=== PATIENT | male | born 1945 | race Caucasian/White ===

== ENCOUNTER 2018-06-23 21:49 | Inpatient (IN) | payer OTHER, MEDICARE, SELFPAY ==
--- NOTE | 2018-06-23 22:19 | NURSING ---
Pt in bed and stable. VS WNL. Call light within reach, fresh ice water provided and pt fatigued.
[2018-06-23 22:20] VITALS: BMI 31.1
[2018-06-23 23:07] VITALS: BP 145/78; PULSE 72; RESP 18; TEMP 36.8; O2SAT 94
[2018-06-23 23:12] VITALS: BMI 31.2
[2018-06-23 23:55] VITALS: BP 142/76; PULSE 72; RESP 17; TEMP 36.8; O2SAT 94
[2018-06-24] MEDS: Enoxaparin 40 MG/0.4 ML Syringe SC (05:36)
[2018-06-24 06:25] VITALS: O2SAT 96
[2018-06-24 06:32] LABS: Hemoglobin 13.4 g/dl (13.0-16.5); Mean Corp Hgb Conc 33.5 g/gl (32-36); Mean Corpuscular Hgb 31.2 pg (27.0-32.0); Mean Corpuscular Volume 93.2 fL (80-94); Mean Platelet Vol. 9.9 fl (6.2-12.0); Platelet Count 164 K/mm3 (150-450); RBC Distribution Width CV 12.6 % (11.6-14.6); Red Blood Count 4.29 M/mm3 (4.6-6.2); White Blood Count 7.4 K/mm3 (4.4-11.0)
[2018-06-24 06:37] LABS: International Normalized Ratio 1.1; Prothrombin Time (Protime)PT. 14.1 SECONDS (11.7-14.9); Scan Indicated on CBC? Y/N NO
[2018-06-24 06:45] LABS: Anion Gap 8 (5-15); BUN 16 mg/dL (7-18); BUN/Creat Ratio 17.3 RATIO (10-20); Calcium,Total 8.7 mg/dL (8.5-10.1); Chloride 107 mmol/L (98-107); Creatinine, Serum 0.93 mg/dL (0.70-1.30); EST Glomerular Filtration Rate 85 mL/min (>60); Est Glom Filt Rate - Afr Amer 102 mL/min (>60); Estimated Creatinine Clearance 65.15 ml/min; Glucose 99 mg/dL (74-106); Potassium 3.5 mmol/L (3.5-5.1); Sodium Level 144 mmol/L (136-145)
[2018-06-24 07:56] VITALS: PULSE 78
[2018-06-24] MEDS: Metoprolol(XL)Succ 50 MG Tablet PO ×2 (07:56→20:10)
[2018-06-24] MEDS: Lisinopril 20 MG Tablet PO (07:56)
[2018-06-24] MEDS: dilTIAZem CD 180 MG Capsule PO (07:57)
[2018-06-24] MEDS: Senna/Docusate Sodium 1 Tablet 2 TABLET PO ×2 (07:57→20:11)
[2018-06-24] MEDS: Aspirin E.C. 81 MG Tablet PO (07:57)
[2018-06-24 08:07] VITALS: BP 132/79; PULSE 78; RESP 17; TEMP 36.7; O2SAT 97
--- NOTE | 2018-06-24 16:02 | PCM.HP.COS ---
History of Present Illness Date of Admission: 06/23/18 Chief Complaint: cva The patient is a 72 year old right handed male. who was admitted to the rehab unit for rehabilitation after he suffered a left intraparenchymal hematoma of the left middle cerebellar peduncle as well as intraventricular hemorrhage secondary to Eliquis that he has been on for paroxysmal atrial fibrillation. He has a pass medical history significant for paroxysmal A-Fib, he had an ablation in the past, and was recently started on Eliquis 2 months ago, he is on Cardizem and Metoprolol for rate control, CAD s/p PTCI, HTN, HLD, and obesity, his BMI is 31.2. He was admitted to [facility] ([facility]) from [place] [facility] a few days ago with sudden onset dizziness with N/V, ataxic gait resulting in a fall with no loss of consciousness, and a headache. CTH at [place]'s ED showed a 2.4 cm left-sided cerebellar hemorrhage extending into the third and fourth ventricle. He was then life flighted to [facility], and admitted to the NSICU, his NIH on admission was 0. Once at [facility] his hemorrhage was managed conservatively without any interventions. He continues to have some mild weakness of the left upper extremity. He lives with his in a1 story home with no steps to get into the home. He was previously completely functionally independent and is admitted to the rehab unit in order to restore his previous level of functional independence. He was on Eliquis previously at home. Past Medical History Past Medical History (Chronic Problems): Chronic Problems Hyperlipidemia (Chronic) Hypertension (Chronic) Status post percutaneous transluminal coronary angioplasty (Chronic) Coronary artery disease (Chronic) Paroxysmal atrial fibrillation (Chronic) Allergies ibuprofen Allergy (Verified 06/23/18 22:27) Anaphylaxis Surgical History: cataract - right eye, tonsillectomy, - - Right shoulder surgery, Neck surgery for fractures, Pilonidal cyst, and carpal tunnel surgery right hand Lives: Spouse/ Significant Other Smoking Status: Former smoker Alcohol: Occasional Drugs: None - *Family History Maternal History Items: No pertinent history Paternal History Items: No pertinent history Review of Systems Constitutional: Denies: Chills, Fever, Weight Change HEENT: Denies: Head Aches, Sinus Congestion, Sinus Drainage Cardiovascular: Denies: Chest Pain, Palpitations Respiratory: Denies: Cough, Shortness of breath at rest, Sputum production Gastrointestinal: Denies: Abdominal Pain, Nausea, Vomiting Genitourinary: Denies: Dysuria Musculoskeletal: Denies: Joint Pain, Joint Tenderness Skin: Denies: Rash, Wounds Neurological: Denies: Numbness, Tingling, Focal weakness Psychiatric: Denies: Anxiety, Depression, Homicidal Ideations, Suicidal Ideations Hematologic/ Lymphatic: Denies: Easy Bruising, Easy Bleeding VTE Information - Inpt Only VTE Present on Admission: No VTE Mechan Device Prophylaxis: SCD's, Knee High IGOR Hose VTE Pharm Prophylaxis ordered?: Yes Patient Problems: Active and Suspected Problems Intraventricular hemorrhage (Acute) 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 (Acute) - Physical Exam General: Alert, Oriented x3, Cooperative HEENT: Atraumatic, PERRLA, EOMI, Normocephalic Neck: Supple, No JVD, Negative Carotid Bruits Lungs: Clear to auscultation, Normal air movement Cardiovascular: Regular rate, No murmurs Abdomen: Bowel Sounds Present, Soft, Non Tender Extremities: No edema, Capillary Refill Less than 3 Seconds Skin: No rashes, No breakdown Musculoskeletal: No Tenderness to Palpation of Joints or Extremities Neurological: Cranial nerves II-XII grossly intact Psych/Mental Status: Normal Affect, Appropriate Vital Signs Temp Pulse Resp BP Pulse Ox 98.0 F 78 17 132/79 H 97 06/24/18 08:07 06/24/18 08:07 06/24/18 08:07 06/24/18 08:07 06/24/18 08:07 Oxygen Delivery Method Room Air Weight: 90.265 kg Body Mass Index (BMI) 31.1 Intake and Output for Last 24 Hours 06/22/18 06/23/18 06/24/18 23:59 23:59 23:59 Intake Total 640 / 640 Balance 640 / 640 Laboratory Tests Past 24 Hrs 06/24/18 06/24/18 06/24/18 06:20 06:20 06:20 WBC 7.4 RBC 4.29 L Hgb 13.4 Hct 40.0 MCV 93.2 MCH 31.2 MCHC 33.5 RDW 12.6 RDW Differential 42.0 Plt Count 164 MPV 9.9 PT 14.1 INR 1.1 Sodium 144 Potassium 3.5 Chloride 107 Carbon Dioxide 29.0 Anion Gap 8 BUN 16 Creatinine 0.93 Estim Creat Clear Calc 65.15 Est GFR (MDRD) Af Amer 102 Est GFR (MDRD) Non-Af 85 BUN/Creatinine Ratio 17.3 Glucose 99 Calcium 8.7 Assessment/Plan All Active Problems Intraventricular hemorrhage (Acute) 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 Goal of rehab is holiness of functional independence. Plan: - Physical therapy for gait and balance - Occupational Therapy for ADLs - Speech therapy - As needed analgesics - Bowel protocol - Stroke prevention on ASA, Statin - DVT prophylaxis: SCDs, ASA, Lovenox - Hypertension: Blood pressure stable, continue lisinopril and metoprolol. Keep BP < 130/80 mmHg - hyperlipidemia: Continue statins. - CAD s/p PTCI: Continue aspirin, Lipitor, lisinopril and metoprolol. - Paroxysmal A. fib: Rate is controlled, in sinus rhythm. Continue Cardizem and metoprolol for rate control, on aspirin. Not on anticoagulation at this time hold until cleared by Neurosurgeon - Acute left intraparenchymal hematoma of the left middle cerebellar peduncle/interventricular hemorrhage: has minimal left upper extremity weakness, mostly in the hand, will do a follow-up CT scan brain in couple of days. -Fall precautions
--- NOTE | 2018-06-24 16:43 | PCM.CONS.GEN ---
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 History of Present Illness: The patient is a 72 year old M with past medical history as mentioned above admitted to rehabilitation unit yesterday after he suffered a left intraparenchymal hematoma of the left middle cerebellar peduncle as well as intraventricular hemorrhage secondary to Eliquis that he has been on for paroxysmal atrial fibrillation. At this time, he reported intermittent dizziness and he said that this has been going on for some time and he has been getting up slowly to avoid. He denies syncope or presyncope. Patient denied any significant symptoms except difficulty grabbing items by his left hand. He denied headache, vision change or slurred speech. He denied chest pain or shortness of breath. He had a history of CAD status post PTCI and he has been on aspirin, statins, lisinopril and metoprolol has been stable. He had a history of paroxysmal atrial fibrillation, status post ablation in the past, recently started on Eliquis for anticoagulation around 2 months ago and he has been having gum bleeding since he was started on Eliquis. He has been on Cardizem and metoprolol for rate control. He has a history of hypertension and has been under control with Cardizem, lisinopril and metoprolol. He was admitted to [facility] few days ago after he had dizziness and syncopal episode, found to have left intraparenchymal hematoma of the left middle cerebellar peduncle as well as intraventricular hemorrhage and this was managed conservatively without any interventions. The only deficit that he has is minimal weakness of the left upper extremity. At this time, his vital signs are stable. His routine blood work was unremarkable. Pro time and INR were normal. Past Medical History Past Medical History (Chronic Problems): Chronic Problems Hyperlipidemia (Chronic) Hypertension (Chronic) Status post percutaneous transluminal coronary angioplasty (Chronic) Coronary artery disease (Chronic) Type 2 diabetes mellitus (Chronic) Paroxysmal atrial fibrillation (Chronic) Allergies ibuprofen Allergy (Verified 06/23/18 22:27) Anaphylaxis Surgical History: - - Back surgery, neck surgery, vasectomy, PTCI. Psychiatric History: No pertinent psych hx Lives: Spouse/ Significant Other Smoking Status: Former smoker Alcohol: Occasional Drugs: None - *Family History Maternal History Items: No pertinent history Paternal History Items: No pertinent history Review of Systems Constitutional: Denies: Anorexia, Chills, Fever, Weakness, Fatigue Eyes: Denies: Blurred vision, Double vision, Drainage, Redness HEENT: Denies: Difficulty Hearing, Ear Pain, Eye Pain, Nasal Congestion, Sore Throat Cardiovascular: Denies: Chest Pain, Chest Pressure, Chest Tightness, Heaviness, Palpitations, Syncope Respiratory: Denies: Cough, Pleuritic Pain, Shortness of Breath, Sputum production, Wheezing Gastrointestinal: Denies: Abdominal Pain, Constipation, Diarrhea, Nausea, Vomiting Genitourinary: Denies: Dysuria, Frequency, Hematuria Musculoskeletal: Denies: Arm Pain, Back Pain, Foot Pain Skin: Denies: Dryness, Rash Neurological: Denies: Balance problems, Blurred vision, Double vision, Confusion, Headaches, Incoordination, Numbness Psychiatric: Denies: Anxiety, Depression Endocrine: Denies: Change in Body Habitus, Polydipsia Patient Problems: Active and Suspected Problems Intraventricular hemorrhage (Acute) 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 (Acute) - Physical Exam General: Alert, Oriented x3, Cooperative, No apparent distress HEENT: Atraumatic, PERRLA, EOMI, Normocephalic Oral: Moist Mucosa, No Gingival or Mucosal Lesions/ Ulcerations Neck: Supple, No JVD, Negative Carotid Bruits, Trachea Midline, Thyroid Normal Size and Texture Lungs: Clear to auscultation, Normal air movement, No rhonchi, No wheeze, No rales Cardiovascular: Regular rate, Regular Rhythm, Normal S1, Normal S2, PMI Normal Abdomen: Bowel Sounds Present, Soft, Non Tender, Non-Distended, No Hepato-splenomegaly Extremities: No clubbing, No cyanosis, No edema Skin: No rashes, No breakdown Lymphatic: No Cervical, Supraclavicular, or Inguinal Adenopathy Neurological: Cranial nerves II-XII grossly intact - Minimal left upper extremity weakness, power is almost 5 x 5, 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 Psych/Mental Status: Normal Affect, Appropriate, Alert and oriented to time, place, person, mood and affect Vital Signs Temp Pulse Resp BP Pulse Ox 98.0 F 78 17 132/79 H 97 06/24/18 08:07 06/24/18 08:07 06/24/18 08:07 06/24/18 08:07 06/24/18 08:07 Oxygen Delivery Method Room Air Weight: 199 lb 0.004 oz Body Mass Index (BMI) 31.1 Intake and Output for Last 24 Hours 06/22/18 06/23/18 06/24/18 23:59 23:59 23:59 Intake Total 640 / 640 Balance 640 / 640 Laboratory Tests Past 24 Hrs 06/24/18 06/24/18 06/24/18 06:20 06:20 06:20 WBC 7.4 RBC 4.29 L Hgb 13.4 Hct 40.0 MCV 93.2 MCH 31.2 MCHC 33.5 RDW 12.6 RDW Differential 42.0 Plt Count 164 MPV 9.9 PT 14.1 INR 1.1 Sodium 144 Potassium 3.5 Chloride 107 Carbon Dioxide 29.0 Anion Gap 8 BUN 16 Creatinine 0.93 Estim Creat Clear Calc 65.15 Est GFR (MDRD) Af Amer 102 Est GFR (MDRD) Non-Af 85 BUN/Creatinine Ratio 17.3 Glucose 99 Calcium 8.7 Assessment/Plan All Active Problems Intraventricular hemorrhage (Acute) 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 It is secondary to coagulopathy due to Eliquis. Pro time and INR are normal. Hemoglobin and hematocrit are stable. Vital signs are stable. Routine blood blood work is unremarkable. Plan to continue aspirin, PT OT evaluation and treatment, patient will probably need follow-up CT scan brain in couple of days. #2 paroxysmal A. fib: Rate is controlled, in sinus rhythm at this time. Plan to continue Cardizem and metoprolol for rate control, on aspirin. He is not on anticoagulation and he should not be at this time. #3 CAD status post PTCI: Denies any symptoms, no chest pain or shortness of breath. Continue aspirin, Lipitor, lisinopril and metoprolol. #4 hypertension: Blood pressure stable, continue lisinopril and metoprolol. #5 hyperlipidemia: Continue statins. #6 DVT prophylaxis: Subcu Lovenox. This note was generated with [employer] dictation software. It may contain incorrect words, spelling, and punctuation that were not noted in checking the note before signing. Code Visit Inpatient E&M: 08065 Init Hosp L2
--- NOTE | 2018-06-24 16:48 | CON.PCM_ITS ---
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 History of Present Illness: The patient is a 72 year old M with past medical history as mentioned above admitted to rehabilitation unit yesterday after he suffered a left intraparenchymal hematoma of the left middle cerebellar peduncle as well as intraventricular hemorrhage secondary to Eliquis that he has been on for paroxysmal atrial fibrillation. At this time, he reported intermittent dizziness and he said that this has been going on for some time and he has been getting up slowly to avoid. He denies syncope or presyncope. Patient denied any significant symptoms except difficulty grabbing items by his left hand. He denied headache, vision change or slurred speech. He denied chest pain or shortness of breath. He had a history of CAD status post PTCI and he has been on aspirin, statins, lisinopril and metoprolol has been stable. He had a history of paroxysmal atrial fibrillation, status post ablation in the past, recently started on Eliquis for anticoagulation around 2 months ago and he has been having gum bleeding since he was started on Eliquis. He has been on Cardizem and metoprolol for rate control. He has a history of hypertension and has been under control with Cardizem, lisinopril and metoprolol. He was admitted to [facility] few days ago after he had dizziness and syncopal episode, found to have left intraparenchymal hematoma of the left middle cerebellar peduncle as well as intraventricular hemorrhage and this was managed conservatively without any interventions. The only deficit that he has is minimal weakness of the left upper extremity. At this time, his vital signs are stable. His routine blood work was unremarkable. Pro time and INR were normal. Past Medical History Past Medical History (Chronic Problems): Chronic Problems Hyperlipidemia (Chronic) Hypertension (Chronic) Status post percutaneous transluminal coronary angioplasty (Chronic) Coronary artery disease (Chronic) Type 2 diabetes mellitus (Chronic) Paroxysmal atrial fibrillation (Chronic) Allergies ibuprofen Allergy (Verified 06/23/18 22:27) Anaphylaxis Surgical History: - - Back surgery, neck surgery, vasectomy, PTCI. Psychiatric History: No pertinent psych hx Lives: Spouse/ Significant Other Smoking Status: Former smoker Alcohol: Occasional Drugs: None - *Family History Maternal History Items: No pertinent history Paternal History Items: No pertinent history Review of Systems Constitutional: Denies: Anorexia, Chills, Fever, Weakness, Fatigue Eyes: Denies: Blurred vision, Double vision, Drainage, Redness HEENT: Denies: Difficulty Hearing, Ear Pain, Eye Pain, Nasal Congestion, Sore Throat Cardiovascular: Denies: Chest Pain, Chest Pressure, Chest Tightness, Heaviness, Palpitations, Syncope Respiratory: Denies: Cough, Pleuritic Pain, Shortness of Breath, Sputum production, Wheezing Gastrointestinal: Denies: Abdominal Pain, Constipation, Diarrhea, Nausea, Vomiting Genitourinary: Denies: Dysuria, Frequency, Hematuria Musculoskeletal: Denies: Arm Pain, Back Pain, Foot Pain Skin: Denies: Dryness, Rash Neurological: Denies: Balance problems, Blurred vision, Double vision, Confusion , Headaches, Incoordination, Numbness Psychiatric: Denies: Anxiety, Depression Endocrine: Denies: Change in Body Habitus, Polydipsia Patient Problems: Active and Suspected Problems Intraventricular hemorrhage (Acute) 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 (Acute) - Physical Exam General: Alert, Oriented x3, Cooperative, No apparent distress HEENT: Atraumatic, PERRLA, EOMI, Normocephalic Oral: Moist Mucosa, No Gingival or Mucosal Lesions/ Ulcerations Neck: Supple, No JVD, Negative Carotid Bruits, Trachea Midline, Thyroid Normal Size and Texture Lungs: Clear to auscultation, Normal air movement, No rhonchi, No wheeze, No rales Cardiovascular: Regular rate, Regular Rhythm, Normal S1, Normal S2, PMI Normal Abdomen: Bowel Sounds Present, Soft, Non Tender, Non-Distended, No Hepato- splenomegaly Extremities: No clubbing, No cyanosis, No edema Skin: No rashes, No breakdown Lymphatic: No Cervical, Supraclavicular, or Inguinal Adenopathy Neurological: Cranial nerves II-XII grossly intact - Minimal left upper extremity weakness, power is almost 5 x 5, 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 Psych/Mental Status: Normal Affect, Appropriate, Alert and oriented to time, place, person, mood and affect Vital Signs Temp Pulse Resp BP Pulse Ox 98.0 F 78 17 132/79 H 97 06/24/18 08:07 06/24/18 08:07 06/24/18 08:07 06/24/18 08:07 06/24/18 08:07 Oxygen Delivery Method Room Air Weight: 199 lb 0.004 oz Body Mass Index (BMI) 31.1 Intake and Output for Last 24 Hours 06/22/18 06/23/18 06/24/18 23:59 23:59 23:59 Intake Total 640 / 640 Balance 640 / 640 Laboratory Tests Past 24 Hrs 06/24/18 06/24/18 06/24/18 06:20 06:20 06:20 WBC 7.4 RBC 4.29 L Hgb 13.4 Hct 40.0 MCV 93.2 MCH 31.2 MCHC 33.5 RDW 12.6 RDW Differential 42.0 Plt Count 164 MPV 9.9 PT 14.1 INR 1.1 Sodium 144 Potassium 3.5 Chloride 107 Carbon Dioxide 29.0 Anion Gap 8 BUN 16 Creatinine 0.93 Estim Creat Clear Calc 65.15 Est GFR (MDRD) Af Amer 102 Est GFR (MDRD) Non-Af 85 BUN/Creatinine Ratio 17.3 Glucose 99 Calcium 8.7 Assessment/Plan All Active Problems Intraventricular hemorrhage (Acute) 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 It is secondary to coagulopathy due to Eliquis. Pro time and INR are normal. Hemoglobin and hematocrit are stable. Vital signs are stable. Routine blood blood work is unremarkable. Plan to continue aspirin, PT OT evaluation and treatment, patient will probably need follow-up CT scan brain in couple of days. #2 paroxysmal A. fib: Rate is controlled, in sinus rhythm at this time. Plan to continue Cardizem and metoprolol for rate control, on aspirin. He is not on anticoagulation and he should not be at this time. #3 CAD status post PTCI: Denies any symptoms, no chest pain or shortness of breath. Continue aspirin, Lipitor, lisinopril and metoprolol. #4 hypertension: Blood pressure stable, continue lisinopril and metoprolol. #5 hyperlipidemia: Continue statins. #6 DVT prophylaxis: Subcu Lovenox. This note was generated with [employer] dictation software. It may contain incorrect words, spelling, and punctuation that were not noted in checking the note before signing. Code Visit Inpatient E&M: 63684 Init Hosp L2
[2018-06-24 19:00] VITALS: BP 144/79; PULSE 71; RESP 18; TEMP 37.1; O2SAT 95
[2018-06-24 20:10] VITALS: PULSE 71
[2018-06-24] MEDS: Atorvastatin Calcium 10 MG Tablet PO (20:11)
[2018-06-25] MEDS: Enoxaparin 40 MG/0.4 ML Syringe SC (05:12)
[2018-06-25 06:58] VITALS: PULSE 69
[2018-06-25] MEDS: dilTIAZem CD 180 MG Capsule PO (06:58)
[2018-06-25] MEDS: Metoprolol(XL)Succ 50 MG Tablet PO ×2 (06:58→20:46)
[2018-06-25] MEDS: Lisinopril 20 MG Tablet PO (06:58)
--- NOTE | 2018-06-25 07:03 | NURSING ---
reviewed and agree with charting of student nurseCarol
[2018-06-25] MEDS: Aspirin E.C. 81 MG Tablet PO (07:58)
[2018-06-25] MEDS: Senna/Docusate Sodium 1 Tablet 2 TABLET PO ×2 (07:58→20:45)
--- NOTE | 2018-06-25 09:46 | REHABEVAL_ITS ---
Admission Information Status Changes from Prescreening?: No changes Identified Actual Problem List:: Falls, Mobility Impaired, Self Care Deficit, BP, Hypertension Potential Problem List:: DVT, Bleeding, Infection, UTI, Aspiration, Falls, Skin Integrity, Depression Risk of Complications DVT: LMWH, IGOR Hose, Sequential Compression Device Bleeding: Monitor Lab Values, Nursing to Teach Precautions for anti-coagulation therapy., Wound, if applicable, to be assessed every shift., Stroke patients assessed for lethargy or change in status. Infection: Clinical Staff to Monitor for S/S of infection:, S/S of infection include fever, redness, warmth, etc. Urinary Tract Infection: Monitor for frequency, burning, discomfort, or incontinence., Nursing will obtain urine sample for urinalysis and C&S when ordered. Aspiration: Clinical staff will monitor for coughing, drooling, congestion., Speech will evaluate swallowing and dsyphasia., Nursing will monitor patient swallowing during meals. Falls: Patient will be evaluated for Fall Precautions, Patient will be placed on Fall Precautions as indicated per protocol. Skin Breakdown: Nursing will assess skin daily using assessment tool., Nursing will place on Skin Breakdown Precautions as indicated. Pain: Clinical staff will assess patient's pain level per protocol., Medications will be given, if needed, and the pain level reassessed., Other methods: Massage, distraction, decrease stimulus, etc. used PRN. Plan of Care Patient requires physician specializing in physical medicine and rehab oversight to provide close medical supervision of rehab issues including: Pain Management, Sleep Problems, Bowel and Bladder, Medical and co-morbidity Management, DVT prophylaxis, Rehabilitation Leadership, Coordination of treatment team Patient needs Physical Therapy: For a minimum of 1 hour, At least 5 out of 7 days Patient needs Physical Therapy to improve:: Mobility, Mobility, Mobility, Strengthening, Transfers, Stretching, ROM, Endurance, Stairs, Gait, Balance Patient needs Occupational Therapy: For a minimum of 1 hour, At least 5 out of 7 days Patient needs Occupational Therapy to improve ADL's incl.: Eating, Grooming, Bathing, Dressing, Toileting, Toilet transfers, Community Reintegration, Higher functioning activities, Household tasks, Adaptive Equipment, Splinting, Other activities as determined Patient requires speech therapy: For a minimum of 1 hour, At least 5 out of 7 days Patient requires speech therapy for: Swallowing, Cognition, Language Skills, Compensatory Strategies Patient requires 15/06 Rehabilitation Nursing for: Pain Issues, Identifying and preventing risk factors, Monitoring and reporting current medical conditions, Assisting with ambulation, transfer, and all ADL's, Teaching patients about disease process and medications, Family teaching, Providing safe environment, Bowel and Bladder Issues, Skin integrity, Medication Management Patient needs Geophysical Prospector/ Case Management for: Discharge Planning, Arranging Home Equipment or Services, Family Interventions Patient needs Dietary and Nutrition Services for: Adequate Nutrition, Nutritional Supplements, Nutritional Education Goals Patient will remain: free from falls, or injury at time of discharge. Patient will perform bed mobility at: MOD I level of assist. Patient will complete transfers from bed to chair at: MOD I level of assist. Patient will ambulate: 100 feet, with MOD I assist, with LRD Patient will complete upper body dressing at: MOD I level of assist. Patient will complete lower body dressing at: MOD I level of assist. Patient will complete toileting at: MOD I level of assist. Patient will perform bathing at: MOD I level of assist. Patient will complete grooming at: MOD I level of assist. Patient will complete home management skills at: MOD I level of assist. Patient will achieve: 12 stairs, at MOD I assist Patient will have pain level of: of 3 or less Patient's skin will: remain intact, free from infection. Patient will receive: adequate nutrition. Discharge Planning Pt Prognosis for Sig. Practical Improv. w/in Reasonable Time: Good Estimated Length of stay (days): 16 Anticipated D/C Destination: Home Was Preadmission Assessment Accurate?: Yes
[2018-06-25 10:00] VITALS: BP 151/81; PULSE 78; RESP 18; TEMP 36.6; O2SAT 96
--- NOTE | 2018-06-25 10:12 | CASEMGMT ---
Insurance Call from Olivia at [facility] and update is due 06/30. Please include team notes. Auth # [id number] THEO Bermudez
[2018-06-25 14:32] VITALS: O2SAT 95
[2018-06-25 19:06] VITALS: BP 149/95; PULSE 72; RESP 20; TEMP 36.8; O2SAT 95
[2018-06-25] MEDS: Atorvastatin Calcium 10 MG Tablet PO (20:45)
[2018-06-25 20:46] VITALS: BP 149/95; PULSE 72
[2018-06-25 20:48] VITALS: PULSE 72; RESP 15; O2SAT 95
[2018-06-26] MEDS: Enoxaparin 40 MG/0.4 ML Syringe SC (05:44)
[2018-06-26] MEDS: dilTIAZem CD 180 MG Capsule PO (06:40)
[2018-06-26 06:41] VITALS: BP 165/100; PULSE 73
[2018-06-26] MEDS: Metoprolol(XL)Succ 50 MG Tablet PO ×2 (06:41→22:23)
[2018-06-26] MEDS: Lisinopril 20 MG Tablet PO ×2 (06:41→19:26)
--- NOTE | 2018-06-26 06:43 | NURSING ---
Addendum entered by Sarahi Scott 06/26/18 06:49: pt denies any sx at this time. Original Note: it security architect taking am vs and bp is noted to be 165/100 and ap 73. am bp medications given at this time and rn text hospitalist to let them know about bp
--- NOTE | 2018-06-26 06:50 | NURSING ---
return call from hospitalist martin to give am bp medications
[2018-06-26 08:00] VITALS: PULSE 73; RESP 18; TEMP 36.5; O2SAT 96
[2018-06-26] MEDS: Aspirin E.C. 81 MG Tablet PO (09:42)
[2018-06-26] MEDS: Senna/Docusate Sodium 1 Tablet 2 TABLET PO ×2 (09:43→22:23)
[2018-06-26 09:45] VITALS: BP 128/84
--- NOTE | 2018-06-26 14:10 | PCM.PN.HOSP ---
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 Patient upset about the diet stated that it is under salt did. Patient states that with his brain bleed and his hospitalizations he is lost approximately 14 pounds. Did have constipation with that did resolve. Vitals/I&O's: Vital Signs Temp Pulse Resp BP Pulse Ox 36.5 C L 73 18 128/84 H 96 06/26/18 08:00 06/26/18 08:00 06/26/18 08:00 06/26/18 09:45 06/26/18 08:00 Oxygen Delivery Method Room Air Weight: 90.265 kg Body Mass Index (BMI) 31.1 Intake and Output for Last 24 Hours 06/24/18 06/25/18 06/26/18 23:59 23:59 23:59 Intake Total 640 / 640 360 / 360 720 / 720 Balance 640 / 640 360 / 360 720 / 720 General: Alert, Cooperative, No apparent distress HEENT: Atraumatic, Normocephalic Oral: Moist Mucosa, No Gingival or Mucosal Lesions/ Ulcerations, - - No thrush Neck: No Nodes, Thyroid Normal Size and Texture Lungs: Clear to auscultation, Normal air movement, No rhonchi, No wheeze Cardiovascular: Regular rate, Regular Rhythm, Normal S1, Normal S2, No murmurs Abdomen: Bowel Sounds Present, Soft, Non Tender, Non-Distended, No Hepato-splenomegaly Extremities: No edema, No Calf Tenderness Neurological: - - Ataxia of the left upper extremity. Muscle strength 5 out of 5 in bilateral upper extremities Psych/Mental Status: Normal Affect, Appropriate Current Medications Acetaminophen (Tylenol) 650 mg PO Q8H PRN PRN PRN Reason: Mild Pain (0-3/10)/Headache Aspirin (Ecotrin) 81 mg PO DAILY@0800 [facility] Last Admin: 06/26/18 09:42 Dose: 81 mg Atorvastatin Calcium (Lipitor) 10 mg PO QHS [facility] Last Admin: 06/25/18 20:45 Dose: 10 mg Bisacodyl (Dulcolax) 10 mg RECTAL .PRN X 1 PRN PRN Reason: Constipation Diltiazem HCl (Cardizem Cd) 180 mg PO DAILY [facility] Last Admin: 06/26/18 06:40 Dose: 180 mg Enoxaparin Sodium (Lovenox) 40 mg SC DAILY@0600 [facility] Last Admin: 06/26/18 05:44 Dose: 40 mg Lisinopril (Zestril) 20 mg PO DAILY [facility] Last Admin: 06/26/18 06:41 Dose: 20 mg Magnesium Hydroxide (Milk Of Magnesia) 30 ml PO .PRN X 1 PRN PRN Reason: Constipation Metoprolol Succinate (Toprol Xl (Beta Florence)) 50 mg PO BID [facility] Last Admin: 06/26/18 06:41 Dose: 50 mg Nutritional Formula (Lactose Free) (Ensure Enlive) 120 ml PO 4X/DAY [facility] Last Admin: 06/26/18 09:43 Dose: 120 ml Senna/Docusate Sodium (Senokot-S, Selene-Colace) 2 tablet PO BID [facility] Last Admin: 06/26/18 09:43 Dose: 1 tablet Medical Necessity - Tobacco Use Smoking Status: Former smoker Assessment/Plan All Active Problems Intraventricular hemorrhage (Acute) 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 Intracranial hemorrhage Secondary to aspirin and Eliquis apparently Conservative management. Seen by neurosurgery at [facility]. Patient will need to follow-up with neurosurgery as outpatient. Clinically improving Continue with rehab services 2. Paroxysmal atrial fibrillation Rate controlled On aspirin, metoprolol and diltiazem No anticoagulation at this time given the intracranial hemorrhage 3. Hypertension Controlled Continue with antihypertensives 4. DVT prophylaxis: Currently on Lovenox 5. Coronary artery disease Asymptomatic at this time On medical therapy Patient very upset about the restricted cardiac diet. I will discontinue that and start patient on a regular diet. Greater than 35 minutes of which greater than 50% of time was counseling patient about intracranial hemorrhage, cardiac diet and sleep hygiene in the hospital. Code Visit Inpatient E&M: 35636 [facility] Hosp L3
--- NOTE | 2018-06-26 14:17 | PN_ITS ---
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 Patient upset about the diet stated that it is under salt did. Patient states that with his brain bleed and his hospitalizations he is lost approximately 14 pounds. Did have constipation with that did resolve. Vitals/I&O's: Vital Signs Temp Pulse Resp BP Pulse Ox 36.5 C L 73 18 128/84 H 96 06/26/18 08:00 06/26/18 08:00 06/26/18 08:00 06/26/18 09:45 06/26/18 08:00 Oxygen Delivery Method Room Air Weight: 90.265 kg Body Mass Index (BMI) 31.1 Intake and Output for Last 24 Hours 06/24/18 06/25/18 06/26/18 23:59 23:59 23:59 Intake Total 640 / 640 360 / 360 720 / 720 Balance 640 / 640 360 / 360 720 / 720 General: Alert, Cooperative, No apparent distress HEENT: Atraumatic, Normocephalic Oral: Moist Mucosa, No Gingival or Mucosal Lesions/ Ulcerations, - - No thrush Neck: No Nodes, Thyroid Normal Size and Texture Lungs: Clear to auscultation, Normal air movement, No rhonchi, No wheeze Cardiovascular: Regular rate, Regular Rhythm, Normal S1, Normal S2, No murmurs Abdomen: Bowel Sounds Present, Soft, Non Tender, Non-Distended, No Hepato- splenomegaly Extremities: No edema, No Calf Tenderness Neurological: - - Ataxia of the left upper extremity. Muscle strength 5 out of 5 in bilateral upper extremities Psych/Mental Status: Normal Affect, Appropriate Current Medications Acetaminophen (Tylenol) 650 mg PO Q8H PRN PRN PRN Reason: Mild Pain (0-3/10)/Headache Aspirin (Ecotrin) 81 mg PO DAILY@0800 [facility] Last Admin: 06/26/18 09:42 Dose: 81 mg Atorvastatin Calcium (Lipitor) 10 mg PO QHS [facility] Last Admin: 06/25/18 20:45 Dose: 10 mg Bisacodyl (Dulcolax) 10 mg RECTAL .PRN X 1 PRN PRN Reason: Constipation Diltiazem HCl (Cardizem Cd) 180 mg PO DAILY [facility] Last Admin: 06/26/18 06:40 Dose: 180 mg Enoxaparin Sodium (Lovenox) 40 mg SC DAILY@0600 [facility] Last Admin: 06/26/18 05:44 Dose: 40 mg Lisinopril (Zestril) 20 mg PO DAILY [facility] Last Admin: 06/26/18 06:41 Dose: 20 mg Magnesium Hydroxide (Milk Of Magnesia) 30 ml PO .PRN X 1 PRN PRN Reason: Constipation Metoprolol Succinate (Toprol Xl (Beta Florence)) 50 mg PO BID [facility] Last Admin: 06/26/18 06:41 Dose: 50 mg Nutritional Formula (Lactose Free) (Ensure Enlive) 120 ml PO 4X/DAY [facility] Last Admin: 06/26/18 09:43 Dose: 120 ml Senna/Docusate Sodium (Senokot-S, Selene-Colace) 2 tablet PO BID [facility] Last Admin: 06/26/18 09:43 Dose: 1 tablet Medical Necessity - Tobacco Use Smoking Status: Former smoker Assessment/Plan All Active Problems Intraventricular hemorrhage (Acute) 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 Intracranial hemorrhage * Secondary to aspirin and Eliquis apparently * Conservative management. Seen by neurosurgery at [facility]. * Patient will need to follow-up with neurosurgery as outpatient. * Clinically improving * Continue with rehab services 2. Paroxysmal atrial fibrillation * Rate controlled * On aspirin, metoprolol and diltiazem * No anticoagulation at this time given the intracranial hemorrhage 3. Hypertension * Controlled * Continue with antihypertensives 4. DVT prophylaxis: Currently on Lovenox 5. Coronary artery disease * Asymptomatic at this time * On medical therapy * Patient very upset about the restricted cardiac diet. I will discontinue that and start patient on a regular diet. Greater than 35 minutes of which greater than 50% of time was counseling patient about intracranial hemorrhage, cardiac diet and sleep hygiene in the hospital. Code Visit Inpatient E&M: 60130 [facility] Hosp L3
[2018-06-26 19:28] VITALS: BP 145/84; PULSE 65; RESP 16; TEMP 36.9; O2SAT 97
[2018-06-26 22:23] VITALS: BP 145/84; PULSE 65
[2018-06-26] MEDS: Atorvastatin Calcium 10 MG Tablet PO (22:24)
[2018-06-27] MEDS: Enoxaparin 40 MG/0.4 ML Syringe SC (06:06)
[2018-06-27] MEDS: Lisinopril 40 MG Tablet PO (06:09)
[2018-06-27 08:18] VITALS: BP 129/68; PULSE 71; RESP 12; TEMP 37.1; O2SAT 95
[2018-06-27 10:09] VITALS: BP 129/68; PULSE 71
[2018-06-27] MEDS: Metoprolol(XL)Succ 50 MG Tablet PO ×2 (10:09→20:19)
[2018-06-27] MEDS: dilTIAZem CD 180 MG Capsule PO (10:09)
[2018-06-27] MEDS: Aspirin E.C. 81 MG Tablet PO (10:09)
[2018-06-27] MEDS: Senna/Docusate Sodium 1 Tablet 2 TABLET PO ×2 (10:09→20:18)
--- NOTE | 2018-06-27 15:20 | NURSING ---
pt walked lap in villegas with staff, tolerated well.
[2018-06-27 19:13] VITALS: BP 158/90; PULSE 73; RESP 16; TEMP 36.7; O2SAT 94
[2018-06-27 20:00] VITALS: PULSE 73; RESP 16; O2SAT 94
[2018-06-27] MEDS: Atorvastatin Calcium 10 MG Tablet PO (20:18)
[2018-06-27 20:19] VITALS: BP 158/90; PULSE 73
--- NOTE | 2018-06-28 01:01 | NURSING ---
REVIEWED AND AGREE WITH TANK CLEANING SUPERVISOR'S FIM AND HANDOFF CHARTING.
[2018-06-28] MEDS: Enoxaparin 40 MG/0.4 ML Syringe SC (05:54)
[2018-06-28] MEDS: Lisinopril 40 MG Tablet PO (06:57)
[2018-06-28] MEDS: Senna/Docusate Sodium 1 Tablet 2 TABLET PO ×2 (08:04→21:20)
[2018-06-28 08:05] VITALS: BP 151/90; PULSE 62
[2018-06-28] MEDS: Aspirin E.C. 81 MG Tablet PO (08:05)
[2018-06-28] MEDS: dilTIAZem CD 180 MG Capsule PO (08:05)
[2018-06-28] MEDS: Metoprolol(XL)Succ 50 MG Tablet PO ×2 (08:05→21:21)
[2018-06-28 10:00] VITALS: BP 151/90; PULSE 62; RESP 16; TEMP 36.9; O2SAT 94
--- NOTE | 2018-06-28 10:21 | CASEMGMT ---
Team meeting held. Patient present as well as patient spouse. No discharge date set at this time. Patient plans to continue with further care and treatment on the Inpatient Rehab Unit at this time. Patient plans to discharge home with spouse at time of discharge. Patient with insurance update due on 06/30/18. Patient and patient family aware that continued stay approval is not guaranteed. Support given. Will continue to follow. Lorna VENEGAS, IMPORTER OR EXPORTER
[2018-06-28] MEDS: Hydrocortisone 2.5% Crm 1 APPLIC TOPICAL ×2 (14:15→21:20)
[2018-06-28 18:25] VITALS: BP 143/80; PULSE 66; RESP 16; TEMP 37; O2SAT 94
[2018-06-28 20:15] VITALS: BMI 31.1
[2018-06-28 21:03] VITALS: BP 140/84; PULSE 69; RESP 17; TEMP 36.9; O2SAT 95
[2018-06-28] MEDS: Atorvastatin Calcium 10 MG Tablet PO (21:20)
[2018-06-28 21:21] VITALS: PULSE 64
[2018-06-29] MEDS: Hydrocortisone 2.5% Crm 1 APPLIC TOPICAL ×3 (06:17→21:08)
[2018-06-29] MEDS: Lisinopril 40 MG Tablet PO (06:18)
[2018-06-29] MEDS: Enoxaparin 40 MG/0.4 ML Syringe SC (06:18)
[2018-06-29 07:05] VITALS: PULSE 66; RESP 18; TEMP 36.8; O2SAT 96
[2018-06-29] MEDS: Senna/Docusate Sodium 1 Tablet 2 TABLET PO ×2 (07:41→21:08)
[2018-06-29] MEDS: dilTIAZem CD 180 MG Capsule PO (07:41)
[2018-06-29] MEDS: Aspirin E.C. 81 MG Tablet PO (07:41)
[2018-06-29 07:42] VITALS: PULSE 71
[2018-06-29] MEDS: Metoprolol(XL)Succ 50 MG Tablet PO ×2 (07:42→21:08)
[2018-06-29 07:43] VITALS: BP 123/87
[2018-06-29 12:35] VITALS: BMI 31.1
[2018-06-29 20:50] VITALS: BP 153/78; PULSE 68; RESP 18; TEMP 37; O2SAT 95
[2018-06-29 21:01] VITALS: BMI 31.1
[2018-06-29 21:08] VITALS: PULSE 69
[2018-06-29] MEDS: Atorvastatin Calcium 10 MG Tablet PO (21:08)
[2018-06-30] MEDS: Enoxaparin 40 MG/0.4 ML Syringe SC (05:40)
[2018-06-30] MEDS: Hydrocortisone 2.5% Crm 1 APPLIC TOPICAL ×3 (05:42→21:39)
[2018-06-30] MEDS: Lisinopril 40 MG Tablet PO (06:01)
[2018-06-30 08:12] VITALS: BP 128/71; PULSE 73; RESP 17; TEMP 36.5; O2SAT 94
[2018-06-30 10:45] VITALS: BP 128/71; PULSE 73
[2018-06-30] MEDS: Aspirin E.C. 81 MG Tablet PO (10:45)
[2018-06-30] MEDS: dilTIAZem CD 180 MG Capsule PO (10:45)
[2018-06-30] MEDS: Metoprolol(XL)Succ 50 MG Tablet PO ×2 (10:45→21:39)
[2018-06-30] MEDS: Senna/Docusate Sodium 1 Tablet 2 TABLET PO ×2 (10:46→21:38)
--- NOTE | 2018-06-30 12:10 | CASEMGMT ---
Insurance Clinical information faxed. Pending continued stay approval at this time. Auth#[id number] Lorna VENEGAS, MEDICAL PRACTICE MANAGER
[2018-06-30 13:28] VITALS: BMI 31.1
--- NOTE | 2018-06-30 13:56 | CASEMGMT ---
Insurance Continued stay approved with next update due on 07/07/18. Auth#[id number] Lorna VENEGAS, TREATING INSPECTOR
--- NOTE | 2018-06-30 14:41 | PCM.PROGNOTE ---
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 Patient seen and examined. No acute events overnight. He complained that all foods taste bad in his mouth. According to nursing staff, patient has not been eating well for the last couple of days. He denied abdominal pain, nausea vomiting. He denied headache, vision change or focal weakness. His vital signs are stable. - Physical Exam General: Alert, Oriented x3, Cooperative, No apparent distress HEENT: Atraumatic, PERRLA, EOMI, Normocephalic Oral: Moist Mucosa, No Gingival or Mucosal Lesions/ Ulcerations Neck: Supple, No JVD, Negative Carotid Bruits, Trachea Midline, Thyroid Normal Size and Texture Lungs: Clear to auscultation, No rhonchi, No wheeze, No rales, Diminished Cardiovascular: Regular rate, Regular Rhythm, Normal S1, Normal S2, PMI Normal Abdomen: Bowel Sounds Present, Soft, Non Tender, Non-Distended, No Hepato-splenomegaly Extremities: No clubbing, No cyanosis, No edema Skin: No rashes, No breakdown Lymphatic: No Cervical, Supraclavicular, or Inguinal Adenopathy Neurological: Cranial nerves II-XII grossly intact, Motor Exam 5/5 strength throughout Psych/Mental Status: Normal Affect, Appropriate, Alert and oriented to time, place, person, mood and affect Vital Signs Temp Pulse Resp BP Pulse Ox 97.7 F L 73 17 128/71 H 94 06/30/18 08:12 06/30/18 10:45 06/30/18 08:12 06/30/18 10:45 06/30/18 08:12 Oxygen Delivery Method Room Air Weight: 191 lb 5.78 oz Body Mass Index (BMI) 31.1 Intake and Output for Last 24 Hours 06/28/18 06/29/18 06/30/18 23:59 23:59 23:59 Intake Total 720 / 720 240 / 240 Balance 720 / 720 240 / 240 Medical Necessity - Tobacco Use Smoking Status: Former smoker Tobacco Use: Non-smoker Assessment/Plan All Active Problems Intraventricular hemorrhage (Acute) 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 after he suffered acute nontraumatic cerebellar bleed and intraventricular hemorrhage secondary to Eliquis and I am seeing this patient in consultation for medical management. #1 acute left intraparenchymal hematoma of the left middle cerebellar peduncle/interventricular hemorrhage: Weakness on the left side is almost gone, power is almost 5 x 5. His vital signs are stable. The cerebellar and intraventricular hemorrhage is due to coagulopathy due to Eliquis. Pro time and INR are normal. Hemoglobin and hematocrit are stable. Vital signs are stable. Plan to continue same treatment, PT OT according to rehab team. #2 paroxysmal A. fib: Rate is controlled. continue Cardizem and metoprolol for rate control, on aspirin. #3 CAD status post PTCI: Denies any symptoms, no chest pain or shortness of breath. Continue aspirin, Lipitor, lisinopril and metoprolol. #4 hypertension: Blood pressure stable, continue lisinopril and metoprolol. #5 hyperlipidemia: Continue statins. #6 DVT prophylaxis: Subcu Lovenox. This note was generated with [employer] dictation software. It may contain incorrect words, spelling, and punctuation that were not noted in checking the note before signing. Code Visit Inpatient E&M: 17053 [facility] Hosp L2
--- NOTE | 2018-06-30 14:45 | PN_ITS ---
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 Patient seen and examined. No acute events overnight. He complained that all foods taste bad in his mouth. According to nursing staff, patient has not been eating well for the last couple of days. He denied abdominal pain, nausea vomiting. He denied headache, vision change or focal weakness. His vital signs are stable. - Physical Exam General: Alert, Oriented x3, Cooperative, No apparent distress HEENT: Atraumatic, PERRLA, EOMI, Normocephalic Oral: Moist Mucosa, No Gingival or Mucosal Lesions/ Ulcerations Neck: Supple, No JVD, Negative Carotid Bruits, Trachea Midline, Thyroid Normal Size and Texture Lungs: Clear to auscultation, No rhonchi, No wheeze, No rales, Diminished Cardiovascular: Regular rate, Regular Rhythm, Normal S1, Normal S2, PMI Normal Abdomen: Bowel Sounds Present, Soft, Non Tender, Non-Distended, No Hepato- splenomegaly Extremities: No clubbing, No cyanosis, No edema Skin: No rashes, No breakdown Lymphatic: No Cervical, Supraclavicular, or Inguinal Adenopathy Neurological: Cranial nerves II-XII grossly intact, Motor Exam 5/5 strength throughout Psych/Mental Status: Normal Affect, Appropriate, Alert and oriented to time, place, person, mood and affect Vital Signs Temp Pulse Resp BP Pulse Ox 97.7 F L 73 17 128/71 H 94 06/30/18 08:12 06/30/18 10:45 06/30/18 08:12 06/30/18 10:45 06/30/18 08:12 Oxygen Delivery Method Room Air Weight: 191 lb 5.78 oz Body Mass Index (BMI) 31.1 Intake and Output for Last 24 Hours 06/28/18 06/29/18 06/30/18 23:59 23:59 23:59 Intake Total 720 / 720 240 / 240 Balance 720 / 720 240 / 240 Medical Necessity - Tobacco Use Smoking Status: Former smoker Tobacco Use: Non-smoker Assessment/Plan All Active Problems Intraventricular hemorrhage (Acute) 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 #1 acute left intraparenchymal hematoma of the left middle cerebellar peduncle/ interventricular hemorrhage: Weakness on the left side is almost gone, power is almost 5 x 5. His vital signs are stable. The cerebellar and intraventricular hemorrhage is due to coagulopathy due to Eliquis. Pro time and INR are normal. Hemoglobin and hematocrit are stable. Vital signs are stable. Plan to continue same treatment, PT OT according to rehab team. #2 paroxysmal A. fib: Rate is controlled. continue Cardizem and metoprolol for rate control, on aspirin. #3 CAD status post PTCI: Denies any symptoms, no chest pain or shortness of breath. Continue aspirin, Lipitor, lisinopril and metoprolol. #4 hypertension: Blood pressure stable, continue lisinopril and metoprolol. #5 hyperlipidemia: Continue statins. #6 DVT prophylaxis: Subcu Lovenox. This note was generated with [employer] dictation software. It may contain incorrect words, spelling, and punctuation that were not noted in checking the note before signing. Code Visit Inpatient E&M: 67348 Subs Hosp L2
--- NOTE | 2018-06-30 19:20 | DCINST_ITS ---
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 Proposed Discharge Date: 07/02/18
[2018-06-30 21:30] VITALS: BP 145/81; PULSE 66; RESP 17; TEMP 36.7; O2SAT 95; BMI 31.1
[2018-06-30 21:39] VITALS: BP 145/81; PULSE 66
[2018-06-30] MEDS: Atorvastatin Calcium 10 MG Tablet PO (21:39)
--- NOTE | 2018-07-01 01:54 | NURSING ---
pt rings to report that he woke up feeling hot and requested to have temp taken, staff complied with pt request and was 98.0 degrees. pt encouraged to to take blanket off the bed , socks off and take off shirt, pt complied with staff suggestions. will continue to monitor, staff also suggested that pt leave room door open to circulate air in the room. rn aware
--- NOTE | 2018-07-01 01:54 | NURSING ---
REVIEWED AND AGREE WITH LEAD CLINICAL RESEARCH COORDINATOR'S FIM AND HANDOFF CHARTING.
[2018-07-01] MEDS: Enoxaparin 40 MG/0.4 ML Syringe SC (05:15)
[2018-07-01] MEDS: Hydrocortisone 2.5% Crm 1 APPLIC TOPICAL ×2 (05:16→20:30)
[2018-07-01 07:08] VITALS: BP 156/94; PULSE 69; RESP 16; TEMP 36.9; O2SAT 94
[2018-07-01] MEDS: Lisinopril 40 MG Tablet PO (07:13)
[2018-07-01 08:10] VITALS: PULSE 70
[2018-07-01] MEDS: dilTIAZem CD 180 MG Capsule PO (08:10)
[2018-07-01] MEDS: Metoprolol(XL)Succ 50 MG Tablet PO ×2 (08:10→20:31)
[2018-07-01] MEDS: Aspirin E.C. 81 MG Tablet PO (08:11)
[2018-07-01 09:04] VITALS: BP 106/71; PULSE 86; RESP 17; TEMP 36.7; O2SAT 95
--- NOTE | 2018-07-01 09:53 | PCM.PN.NEU ---
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 He is tolerating p.o. well now and has not experienced any more constipation. Tolerating therapies. No GI or complaints or pain. Asks about discharge to home. He does live in a one-story ranch style house with no steps. - Physical Exam General: Alert, Oriented x3, Cooperative, No apparent distress Neurological: Cranial nerves II-XII grossly intact Psych/Mental Status: Normal Affect, Alert and oriented to time, place, person, mood and affect Vital Signs Temp Pulse Resp BP Pulse Ox 36.7 C 86 17 106/71 95 07/01/18 09:04 07/01/18 09:04 07/01/18 09:04 07/01/18 09:04 07/01/18 09:04 Oxygen Delivery Method Room Air Weight: 86.8 kg Body Mass Index (BMI) 31.1 Intake and Output for Last 24 Hours 06/29/18 06/30/18 07/01/18 23:59 23:59 23:59 Intake Total 300 / 300 120 / 120 Balance 300 / 300 120 / 120 Current Medications Generic Name Dose Route Start Last Admin Trade Name Freq PRN Reason Stop Dose Admin Acetaminophen 650 mg 06/23/18 22:28 Tylenol PO Q8H PRN PRN Mild Pain (0-3/10)/Headache Aspirin 81 mg 06/24/18 08:00 07/01/18 08:11 Ecotrin PO 81 mg DAILY@0800 [facility] Administration Atorvastatin Calcium 10 mg 06/24/18 22:00 06/30/18 21:39 Lipitor PO 10 mg QHS [facility] Administration Bisacodyl 10 mg 06/23/18 22:28 Dulcolax RECTAL .PRN X 1 PRN Constipation Diltiazem HCl 180 mg 06/24/18 10:00 07/01/18 08:10 Cardizem Cd PO 180 mg DAILY [facility] Administration Enoxaparin Sodium 40 mg 06/25/18 06:00 07/01/18 05:15 Lovenox SC 40 mg DAILY@0600 [facility] Administration Hydrocortisone 1 applic 06/28/18 14:00 07/01/18 05:16 Hytone TOPICAL 1 applicatio TID [facility] Administration Protocol Lisinopril 40 mg 06/27/18 07:00 07/01/18 07:13 Zestril PO 40 mg DAILY@0700 [facility] Administration Magnesium Hydroxide 30 ml 06/23/18 22:28 Milk Of Magnesia PO .PRN X 1 PRN Constipation Metoprolol Succinate 50 mg 06/24/18 10:00 07/01/18 08:10 Toprol Xl (Beta [place]) PO 50 mg BID [facility] Administration Nutritional Formula (Lactose Free) 120 ml 06/25/18 18:00 07/01/18 08:10 Ensure Enlive PO 120 ml 4X/DAY [facility] Administration Senna/Docusate Sodium 2 tablet 06/24/18 10:00 07/01/18 08:17 Senokot-S, Selene-Colace PO Not Given BID [facility] Medical Necessity - Tobacco Use Smoking Status: Former smoker Tobacco Use: Non-smoker Assessment/Plan All Active Problems Intraventricular hemorrhage (Acute) 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 Goal of rehab is [facility] of functional independence. Plan: - Physical therapy for gait and balance - Occupational Therapy for ADLs - Speech therapy - As needed analgesics - Bowel protocol - Stroke prevention on ASA, Statin - DVT prophylaxis: SCDs, ASA, Lovenox - Hypertension: Blood pressure stable, continue lisinopril and metoprolol. Keep BP < 130/80 mmHg. 07/01: Remains controlled. - hyperlipidemia: Continue statins. - CAD s/p PTCI: Continue aspirin, Lipitor, lisinopril and metoprolol. - Paroxysmal A. fib: Rate is controlled, in sinus rhythm. Continue Cardizem and metoprolol for rate control, on aspirin. Not on anticoagulation at this time hold until cleared by Neurosurgeon. 07/01: Follow-up with neurosurgeon today. - Acute left intraparenchymal hematoma of the left middle cerebellar peduncle/interventricular hemorrhage: has minimal left upper extremity weakness, mostly in the hand, will do a follow-up CT scan brain in couple of days. -Fall precautions
--- NOTE | 2018-07-01 09:56 | PN.NEURO_ITS ---
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 He is tolerating p.o. well now and has not experienced any more constipation. Tolerating therapies. No GI or complaints or pain. Asks about discharge to home. He does live in a one-story ranch style house with no steps. - Physical Exam General: Alert, Oriented x3, Cooperative, No apparent distress Neurological: Cranial nerves II-XII grossly intact Psych/Mental Status: Normal Affect, Alert and oriented to time, place, person, mood and affect Vital Signs Temp Pulse Resp BP Pulse Ox 36.7 C 86 17 106/71 95 07/01/18 09:04 07/01/18 09:04 07/01/18 09:04 07/01/18 09:04 07/01/18 09:04 Oxygen Delivery Method Room Air Weight: 86.8 kg Body Mass Index (BMI) 31.1 Intake and Output for Last 24 Hours 06/29/18 06/30/18 07/01/18 23:59 23:59 23:59 Intake Total 300 / 300 120 / 120 Balance 300 / 300 120 / 120 Current Medications Generic Name Dose Route Start Last Admin Trade Name Freq PRN Reason Stop Dose Admin Acetaminophen 650 mg 06/23/18 22:28 Tylenol PO Q8H PRN PRN Mild Pain (0-3/10)/Headache Aspirin 81 mg 06/24/18 08:00 07/01/18 08:11 Ecotrin PO 81 mg DAILY@0800 [facility] Administration Atorvastatin Calcium 10 mg 06/24/18 22:00 06/30/18 21:39 Lipitor PO 10 mg QHS [facility] Administration Bisacodyl 10 mg 06/23/18 22:28 Dulcolax RECTAL .PRN X 1 PRN Constipation Diltiazem HCl 180 mg 06/24/18 10:00 07/01/18 08:10 Cardizem Cd PO 180 mg DAILY [facility] Administration Enoxaparin Sodium 40 mg 06/25/18 06:00 07/01/18 05:15 Lovenox SC 40 mg DAILY@0600 [facility] Administration Hydrocortisone 1 applic 06/28/18 14:00 07/01/18 05:16 Hytone TOPICAL 1 applicatio TID [facility] Administration Protocol Lisinopril 40 mg 06/27/18 07:00 07/01/18 07:13 Zestril PO 40 mg DAILY@0700 [facility] Administration Magnesium Hydroxide 30 ml 06/23/18 22:28 Milk Of Magnesia PO .PRN X 1 PRN Constipation Metoprolol Succinate 50 mg 06/24/18 10:00 07/01/18 08:10 Toprol Xl (Beta [place]) PO 50 mg BID [facility] Administration Nutritional Formula (Lactose Free) 120 ml 06/25/18 18:00 07/01/18 08:10 Ensure Enlive PO 120 ml 4X/DAY [facility] Administration Senna/Docusate Sodium 2 tablet 06/24/18 10:00 07/01/18 08:17 Senokot-S, Selene-Colace PO Not Given BID [facility] Medical Necessity - Tobacco Use Smoking Status: Former smoker Tobacco Use: Non-smoker Assessment/Plan All Active Problems Intraventricular hemorrhage (Acute) 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 Goal of rehab is [facility] of functional independence. Plan: - Physical therapy for gait and balance - Occupational Therapy for ADLs - Speech therapy - As needed analgesics - Bowel protocol - Stroke prevention on ASA, Statin - DVT prophylaxis: SCDs, ASA, Lovenox - Hypertension: Blood pressure stable, continue lisinopril and metoprolol. Keep BP < 130/80 mmHg. 07/01: Remains controlled. - hyperlipidemia: Continue statins. - CAD s/p PTCI: Continue aspirin, Lipitor, lisinopril and metoprolol. - Paroxysmal A. fib: Rate is controlled, in sinus rhythm. Continue Cardizem and metoprolol for rate control, on aspirin. Not on anticoagulation at this time hold until cleared by Neurosurgeon. 07/01: Follow-up with neurosurgeon today. - Acute left intraparenchymal hematoma of the left middle cerebellar peduncle/ interventricular hemorrhage: has minimal left upper extremity weakness, mostly in the hand, will do a follow-up CT scan brain in couple of days. -Fall precautions
--- NOTE | 2018-07-01 10:00 | NURSING ---
called and message left due to no answer to make sure she was taking patient to appt with dr berkowitz at 1pm.
[2018-07-01 10:04] VITALS: BMI 31.1
--- NOTE | 2018-07-01 13:00 | NURSING ---
did not show up to take patient to appt and patient reported that his was going to cancel appt because he told her he was not going. 1:1 given but ineffective.
[2018-07-01 19:30] VITALS: BP 157/89; PULSE 63; RESP 17; TEMP 36.6; O2SAT 95; BMI 31.1
[2018-07-01 20:00] VITALS: PULSE 63; RESP 17; O2SAT 95
[2018-07-01 20:31] VITALS: BP 157/89; PULSE 63
[2018-07-01] MEDS: Atorvastatin Calcium 10 MG Tablet PO (20:31)
[2018-07-01] MEDS: Senna/Docusate Sodium 1 Tablet 2 TABLET PO (20:35)
[2018-07-02] MEDS: Hydrocortisone 2.5% Crm 1 APPLIC TOPICAL ×3 (06:13→21:22)
[2018-07-02] MEDS: Enoxaparin 40 MG/0.4 ML Syringe SC (06:13)
[2018-07-02] MEDS: Lisinopril 40 MG Tablet PO (06:13)
[2018-07-02 07:00] VITALS: BP 122/71; PULSE 66; RESP 17; TEMP 36.6; O2SAT 95
--- NOTE | 2018-07-02 07:23 | NURSING ---
0650 pt ambulated up to the scale for daily wt and then returned to his room, pt was sat down in the chair, he stated do you have a stethescope? my heart is feeling funny heart was auscultated and was found to bed regular rate and rhythm. vs were as follows 122/71, and ap was 66 with spo2 at 95% on ra. pt wt was 85.5 kg today.
[2018-07-02 07:36] VITALS: PULSE 72
[2018-07-02] MEDS: Metoprolol(XL)Succ 50 MG Tablet PO ×2 (07:36→21:21)
[2018-07-02] MEDS: Senna/Docusate Sodium 1 Tablet 2 TABLET PO ×2 (07:36→21:22)
[2018-07-02] MEDS: Aspirin E.C. 81 MG Tablet PO (07:36)
[2018-07-02] MEDS: dilTIAZem CD 180 MG Capsule PO (07:36)
[2018-07-02 14:45] VITALS: BMI 31.1
[2018-07-02 20:23] VITALS: BP 126/65; PULSE 70; RESP 18; TEMP 36.6; O2SAT 94
[2018-07-02 21:21] VITALS: BP 126/65; PULSE 70
[2018-07-02] MEDS: Atorvastatin Calcium 10 MG Tablet PO (21:21)
[2018-07-02 22:00] VITALS: RESP 15; O2SAT 94
[2018-07-03] MEDS: Lisinopril 40 MG Tablet PO (06:35)
[2018-07-03] MEDS: Enoxaparin 40 MG/0.4 ML Syringe SC (06:36)
[2018-07-03] MEDS: Hydrocortisone 2.5% Crm 1 APPLIC TOPICAL ×3 (06:37→19:44)
[2018-07-03 07:06] VITALS: BP 134/70; PULSE 63; RESP 15; TEMP 36.8; O2SAT 94
[2018-07-03 08:12] VITALS: PULSE 63
[2018-07-03] MEDS: Metoprolol(XL)Succ 50 MG Tablet PO ×2 (08:12→19:45)
[2018-07-03] MEDS: Senna/Docusate Sodium 1 Tablet 2 TABLET PO ×2 (08:12→19:45)
[2018-07-03] MEDS: Aspirin E.C. 81 MG Tablet PO (08:12)
[2018-07-03] MEDS: dilTIAZem CD 180 MG Capsule PO (08:12)
[2018-07-03 11:17] VITALS: BMI 31.1
[2018-07-03 19:12] VITALS: BP 140/85; PULSE 64; RESP 18; TEMP 36.8; O2SAT 97
[2018-07-03] MEDS: Atorvastatin Calcium 10 MG Tablet PO (19:44)
[2018-07-03 19:45] VITALS: PULSE 78
[2018-07-04] MEDS: Lisinopril 40 MG Tablet PO (06:40)
[2018-07-04] MEDS: Hydrocortisone 2.5% Crm 1 APPLIC TOPICAL ×2 (06:40→20:33)
[2018-07-04] MEDS: Enoxaparin 40 MG/0.4 ML Syringe SC (06:40)
[2018-07-04 07:00] VITALS: BP 143/92; PULSE 69; RESP 18; TEMP 36.9; O2SAT 95
[2018-07-04 09:46] VITALS: PULSE 77
[2018-07-04] MEDS: Senna/Docusate Sodium 1 Tablet 2 TABLET PO ×2 (09:46→20:32)
[2018-07-04] MEDS: Aspirin E.C. 81 MG Tablet PO (09:46)
[2018-07-04] MEDS: Metoprolol(XL)Succ 50 MG Tablet PO ×2 (09:46→20:31)
[2018-07-04] MEDS: dilTIAZem CD 180 MG Capsule PO (09:46)
[2018-07-04 12:18] VITALS: BMI 31.1
[2018-07-04 19:55] VITALS: BP 130/79; PULSE 67; RESP 18; TEMP 36.7; O2SAT 96
[2018-07-04 20:31] VITALS: PULSE 67
[2018-07-04] MEDS: Atorvastatin Calcium 10 MG Tablet PO (20:33)
[2018-07-04 20:50] VITALS: BMI 31.1
[2018-07-05] MEDS: Enoxaparin 40 MG/0.4 ML Syringe SC (05:46)
[2018-07-05] MEDS: Hydrocortisone 2.5% Crm 1 APPLIC TOPICAL ×3 (05:46→20:04)
[2018-07-05] MEDS: Lisinopril 40 MG Tablet PO (05:47)
[2018-07-05 08:02] VITALS: PULSE 70
[2018-07-05] MEDS: Metoprolol(XL)Succ 50 MG Tablet PO ×2 (08:02→20:06)
[2018-07-05] MEDS: Aspirin E.C. 81 MG Tablet PO (08:02)
[2018-07-05] MEDS: dilTIAZem CD 180 MG Capsule PO (08:02)
[2018-07-05] MEDS: Senna/Docusate Sodium 1 Tablet 2 TABLET PO ×2 (08:02→20:05)
[2018-07-05 08:40] VITALS: BP 121/85; PULSE 62; RESP 17; TEMP 37.1; O2SAT 95
--- NOTE | 2018-07-05 09:45 | CASEMGMT ---
Team meeting held. Patient present as well as patient spouse. No discharge date set at this time. Patient with insurance update due on 07/07/18 and is aware that continued stay approval would be denied. Patient plans to discharge home with spouse at time of discharge. Therapy is currently recommending for patient to have outpatient therapy services at time of discharge. Plan is to re-team patient next week pending insurance approval. Support given. Will continue to follow. Lorna VENEGAS, ACCOUNT MANAGEMENT ASSISTANT
[2018-07-05 11:18] VITALS: BMI 31.1
--- NOTE | 2018-07-05 12:19 | PCM.PN.NEU ---
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 Staffed in the team meeting today. All questions were answered. 72 yr CM with PMH HTN, HLD, CAD s/p stents, Afib s/p ablation, was on Eliquis started few months ago, now admitted to [facility] with debility s/p left middle cerebellar peduncle hemorrhage with IVH, secondary to AC, for > 3 hrs therapy daily, with the aim of returning home at or near his prior level of functional independence. Was managed conservatively by Neurosurgery at [facility], monitor for hydrocephalus, denies any SIBLEY, was cleared by Neurosurgery prior to discharge to start ASA and DVT prophylaxis with Lovenox, will continue to hold AC, may need evaluation for watchman device by Cardiology as outpatient. With [id number] standby assist, has balance issues, cane-contact guard assist but has been doing better than before, transfer-standby assist. With OT- for dressing/bathing and lower body assist-is standby assist. - Physical Exam General: Alert HEENT: Normocephalic Neck: Supple Lungs: Clear to auscultation Cardiovascular: Normal S1, Normal S2 Abdomen: Bowel Sounds Present Extremities: No cyanosis Musculoskeletal: No Tenderness to Palpation of Joints or Extremities Neurological: - - consious, alert, AoAx3, CN2-12 grossly intact, pupils BERL, power 5/5 both UE/LE, left UE/LE ataxia and incordination, right UE/LE no ataxia, no sensory loss, gait deferred, Reflexes + B/L B/S/T/K/A. 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 Was managed conservatively by Neurosurgery at [facility], monitor for hydrocephalus, denies any SIBLEY, was cleared by Neurosurgery prior to discharge to start ASA and DVT prophylaxis with Lovenox, will continue to hold AC, may need evaluation for watchman device by Cardiology as outpatient Plan -PT for gait instability- continues to have incoordination and balance issues -OT for ADLs -Analgesics as needed -Bowel protocol -Daily weight and I/O -HTN- goal BP < 130/80 mmHg, on Lisinopril, Diltiazem and Metoprolol. BP stable -HLD-on Lipitor 10 mg PO q hs -Afib- AC on hold due to left MCP hemorrhage secondary to AC, on hold per neurosurgery, on Diltiazem and Metoprolol for rate control -Left MCP hemorrhage secondary to AC-stable, goal BP < 130/80 mmHg, follow up with Neurosurgery. Patient had appointment with Dr. Gutierrez on 07/01/18 but did not go, discussed with patient and will make another appointment with Neurosurgery -CAD s/p stents- stable, on ASA, cleared by Neurosurgery -Loss of appetite-patient has declined Remeron, further management per pipe fitter marine recommendations. -GI/DVT prophylaxis- on Enoxaparin -Follow up appointments- 07/15/18 to Echo and holter monitor with [employer], discussed in detail with patient about outpatient cardiology evaluation for watchman device since patient is not willing to go back on AC. -Fall precautions -Further medical management per hospitalist recommendation.
--- NOTE | 2018-07-05 12:24 | PN.NEURO_ITS ---
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 Staffed in the team meeting today. All questions were answered. 72 yr CM with PMH HTN, HLD, CAD s/p stents, Afib s/p ablation, was on Eliquis started few months ago, now admitted to [facility] with debility s/p left middle cerebellar peduncle hemorrhage with IVH, secondary to AC, for > 3 hrs therapy daily, with the aim of returning home at or near his prior level of functional independence. Was managed conservatively by Neurosurgery at [facility], monitor for hydrocephalus, denies any SIBLEY, was cleared by Neurosurgery prior to discharge to start ASA and DVT prophylaxis with Lovenox, will continue to hold AC, may need evaluation for watchman device by Cardiology as outpatient. With PT -walker-needs standby assist, has balance issues, cane-contact guard assist but has been doing better than before, transfer-standby assist. With OT- for dressing/bathing and lower body assist-is standby assist. - Physical Exam General: Alert HEENT: Normocephalic Neck: Supple Lungs: Clear to auscultation Cardiovascular: Normal S1, Normal S2 Abdomen: Bowel Sounds Present Extremities: No cyanosis Musculoskeletal: No Tenderness to Palpation of Joints or Extremities Neurological: - - consious, alert, AoAx3, CN2-12 grossly intact, pupils BERL, power 5/5 both UE/LE, left UE/LE ataxia and incordination, right UE/LE no ataxia , no sensory loss, gait deferred, Reflexes + B/L B/S/T/K/A. 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 Was managed conservatively by Neurosurgery at [facility], monitor for hydrocephalus, denies any SIBLEY, was cleared by Neurosurgery prior to discharge to start ASA and DVT prophylaxis with Lovenox, will continue to hold AC, may need evaluation for watchman device by Cardiology as outpatient Plan -PT for gait instability- continues to have incoordination and balance issues -OT for ADLs -Analgesics as needed -Bowel protocol -Daily weight and I/O -HTN- goal BP < 130/80 mmHg, on Lisinopril, Diltiazem and Metoprolol. BP stable -HLD-on Lipitor 10 mg PO q hs -Afib- AC on hold due to left MCP hemorrhage secondary to AC, on hold per neurosurgery, on Diltiazem and Metoprolol for rate control -Left MCP hemorrhage secondary to AC-stable, goal BP < 130/80 mmHg, follow up with Neurosurgery. Patient had appointment with Dr. Gutierrez on 07/01/18 but did not go, discussed with patient and will make another appointment with Neurosurgery -CAD s/p stents- stable, on ASA, cleared by Neurosurgery -Loss of appetite-patient has declined Remeron, further management per aircraft electronics technical officer recommendations. -GI/DVT prophylaxis- on Enoxaparin -Follow up appointments- 07/15/18 to Echo and holter monitor with [employer], discussed in detail with patient about outpatient cardiology evaluation for watchman device since patient is not willing to go back on AC. -Fall precautions -Further medical management per hospitalist recommendation.
--- NOTE | 2018-07-05 12:24 | PCM.PROGNOTE ---
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 Patient seen and examined. No acute events overnight. He mentioned that his appetite is getting better slowly, mouth tasting better and he started to eat better but not a whole lot. He denied headache. Vital signs are stable. - Physical Exam General: Alert, Oriented x3, Cooperative, No apparent distress HEENT: Atraumatic, PERRLA, EOMI, Normocephalic Oral: Moist Mucosa, No Gingival or Mucosal Lesions/ Ulcerations Neck: Supple, No JVD, Negative Carotid Bruits, Trachea Midline, Thyroid Normal Size and Texture Lungs: Clear to auscultation, Normal air movement, No rhonchi, No wheeze, No rales Cardiovascular: Regular rate, Regular Rhythm, Normal S1, Normal S2, PMI Normal Abdomen: Bowel Sounds Present, Soft, Non Tender, Non-Distended, No Hepato-splenomegaly Extremities: No clubbing, No cyanosis, No edema Skin: No rashes, No breakdown Lymphatic: No Cervical, Supraclavicular, or Inguinal Adenopathy Neurological: Cranial nerves II-XII grossly intact, Neuro grossly intact Psych/Mental Status: Normal Affect, Appropriate Vital Signs Temp Pulse Resp BP Pulse Ox 98.8 F 62 17 121/85 H 95 07/05/18 08:40 07/05/18 08:40 07/05/18 08:40 07/05/18 08:40 07/05/18 08:40 Oxygen Delivery Method Room Air Weight: 189 lb 2.506 oz Body Mass Index (BMI) 31.1 Intake and Output for Last 24 Hours 07/03/18 07/04/18 07/05/18 23:59 23:59 23:59 Intake Total 120 / 120 1180 / 1180 480 / 480 Output Total 800 / 800 1300 / 1300 Balance -680 / -680 -120 / -120 480 / 480 Medical Necessity - Tobacco Use Smoking Status: Former smoker Tobacco Use: Non-smoker Assessment/Plan All Active Problems Intraventricular hemorrhage (Acute) 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 after he suffered acute nontraumatic cerebellar bleed and intraventricular hemorrhage secondary to Eliquis and I am seeing this patient in consultation for medical management. #1 acute left intraparenchymal hematoma of the left middle cerebellar peduncle/interventricular hemorrhage: Without significant residual focal deficit. His vital signs are stable. The cerebellar and intraventricular hemorrhage is due to coagulopathy due to Eliquis. Pro time and INR are normal. Hemoglobin and hematocrit are stable. Vital signs are stable. Plan to continue same treatment, PT OT according to rehab team. #2 paroxysmal A. fib: Rate is controlled. continue Cardizem and metoprolol for rate control, on aspirin. #3 CAD status post PTCI: Stable, no symptoms. Continue aspirin, Lipitor, lisinopril and metoprolol. #4 hypertension: Blood pressure stable, continue lisinopril and metoprolol. #5 hyperlipidemia: Continue statins. #6 DVT prophylaxis: Subcu Lovenox. This note was generated with [employer]™ dictation software. It may contain incorrect words, spelling, and punctuation that were not noted in checking the note before signing. Code Visit Inpatient E&M: 32979 Subs Hosp L2
[2018-07-05] MEDS: Atorvastatin Calcium 10 MG Tablet PO (20:05)
[2018-07-05 20:06] VITALS: PULSE 68
[2018-07-05 21:41] VITALS: BMI 31.1
[2018-07-05 22:00] VITALS: BP 111/61; PULSE 65; RESP 19; TEMP 36.7; O2SAT 95
[2018-07-06] MEDS: Lisinopril 40 MG Tablet PO (06:13)
[2018-07-06] MEDS: Hydrocortisone 2.5% Crm 1 APPLIC TOPICAL ×3 (06:13→22:48)
[2018-07-06] MEDS: Enoxaparin 40 MG/0.4 ML Syringe SC (06:13)
--- NOTE | 2018-07-06 06:50 | NURSING ---
pt stated that he got bad news from his younger brother that was vague but that his brother said things weren't good with him. Pt was tearful and stated that this is really hitting him hard and he feels so helpless. Nurse gave pt time to vent frustrations and held his hand.
[2018-07-06 07:00] VITALS: BP 150/97; PULSE 73; RESP 18; TEMP 36.7; O2SAT 95
--- NOTE | 2018-07-06 10:16 | PCM.PN.NEU ---
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 - Physical Exam General: Alert HEENT: Normocephalic Neck: Supple Lungs: Clear to auscultation Cardiovascular: Normal S1, Normal S2 Abdomen: Bowel Sounds Present Extremities: No cyanosis Musculoskeletal: No Tenderness to Palpation of Joints or Extremities Neurological: - - consious, alert, AoAx3, CN2-12 grossly intact, pupils BERL, power 5/5 both UE/LE, left UE/LE ataxia and incordination, right UE/LE no ataxia, no sensory loss, gait deferred, Reflexes + B/L B/S/T/K/A. Psych/Mental Status: Normal Affect Vital Signs Temp Pulse Resp BP Pulse Ox 98.0 F 73 18 150/97 H 95 07/06/18 07:00 07/06/18 07:00 07/06/18 07:00 07/06/18 07:00 07/06/18 07:00 Oxygen Delivery Method Room Air Weight: 85.8 kg Body Mass Index (BMI) 31.1 Intake and Output for Last 24 Hours 07/04/18 07/05/18 07/06/18 23:59 23:59 23:59 Intake Total 1260 / 1260 1920 / 1920 120 / 120 Output Total 1300 / 1300 1250 / 1250 Balance -40 / -40 670 / 670 120 / 120 Medical Necessity - Tobacco Use Smoking Status: Former smoker Tobacco Use: Non-smoker Assessment/Plan All Active Problems Intraventricular hemorrhage (Acute) 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 Was managed conservatively by Neurosurgery at [facility], monitor for hydrocephalus, denies any SIBLEY, was cleared by Neurosurgery prior to discharge to start ASA and DVT prophylaxis with Lovenox, will continue to hold AC, may need evaluation for watchman device by Cardiology as outpatient Plan -PT for gait instability- continues to have incoordination and balance issues -OT for ADLs -Analgesics as needed -Bowel protocol -Daily weight and I/O -HTN- goal BP < 130/80 mmHg, on Lisinopril, Diltiazem and Metoprolol. BP slightly high, will recheck and re-evaluate -HLD-on Lipitor 10 mg PO q hs -Afib- AC on hold due to left MCP hemorrhage secondary to AC, on hold per neurosurgery, on Diltiazem and Metoprolol for rate control. May benefit from watchman device evaluation by Cardiology. -Left MCP hemorrhage secondary to AC-stable, goal BP < 130/80 mmHg, follow up with Neurosurgery. Patient had appointment with Dr. Gutierrez on 07/01/18 but did not go, discussed with patient and will make another appointment with Neurosurgery -CAD s/p stents- stable, on ASA, cleared by Neurosurgery -Loss of appetite-patient has declined Remeron, further management per clinical documentation nurse recommendations. 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 -Fall precautions -Further medical management per hospitalist recommendation.
[2018-07-06 10:20] VITALS: PULSE 71
[2018-07-06] MEDS: dilTIAZem CD 180 MG Capsule PO (10:20)
[2018-07-06] MEDS: Senna/Docusate Sodium 1 Tablet 2 TABLET PO ×2 (10:20→22:48)
[2018-07-06] MEDS: Metoprolol(XL)Succ 50 MG Tablet PO ×2 (10:20→22:47)
[2018-07-06] MEDS: Aspirin E.C. 81 MG Tablet PO (10:20)
[2018-07-06 13:03] VITALS: BMI 31.1
--- NOTE | 2018-07-06 18:44 | NURSING ---
Patients reported that she rescheduled all of the 07/15 appts for the month of August due to her work schedule.
[2018-07-06 19:09] VITALS: BP 127/73; PULSE 67; RESP 16; TEMP 36.4; O2SAT 95
[2018-07-06 22:47] VITALS: BP 127/73; PULSE 67
[2018-07-06] MEDS: Atorvastatin Calcium 10 MG Tablet PO (22:48)
[2018-07-07 04:41] VITALS: BP 145/79; PULSE 67; RESP 18; O2SAT 94
--- NOTE | 2018-07-07 04:43 | NURSING ---
PT WOKE FROM SLEEP WITH DIFFICULTY BREATHING WHICH SUBSIDES SOON AFTER PT IS SITTING UP IN BED. VITAL SIGNS TAKEN AND IN NORMAL RANGE. LUNG SOUNDS ARE CLEAR. PT FELT HOT WHEN HE WOKE ALSO. BACK OF T SHIRT DAMP FROM SWEAT. BLANKETS REMOVED.
--- NOTE | 2018-07-07 04:48 | NURSING ---
PT REPORTS TO FEEL BREATHING NORMALLY. COLOR PINK. SKIN WARM AND DRY. RESPIRATIONS ARE EVEN AND EASY. PT DENIES PAIN. UP TO USE RESTROOM.
[2018-07-07] MEDS: Enoxaparin 40 MG/0.4 ML Syringe SC (06:35)
[2018-07-07] MEDS: Hydrocortisone 2.5% Crm 1 APPLIC TOPICAL ×3 (06:35→20:52)
[2018-07-07 07:15] VITALS: BP 133/75; PULSE 64
[2018-07-07] MEDS: Lisinopril 40 MG Tablet PO (07:18)
[2018-07-07 10:00] VITALS: BP 139/78; PULSE 66; RESP 16; TEMP 36.5; O2SAT 96
--- NOTE | 2018-07-07 11:16 | PCM.PN.NEU ---
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 Patient discussed with nursing staff. - Physical Exam General: Alert HEENT: Normocephalic Neck: Supple Lungs: Clear to auscultation Cardiovascular: Normal S1, Normal S2 Abdomen: Bowel Sounds Present Extremities: No cyanosis Skin: No rashes Musculoskeletal: No Tenderness to Palpation of Joints or Extremities Neurological: - - consious, alert, AoAx3, CN2-12 grossly intact, pupils BERL, power 5/5 both UE/LE, left UE/LE ataxia and incordination, right UE/LE no ataxia, no sensory loss, gait deferred, Reflexes + B/L B/S/T/K/A. Psych/Mental Status: Normal Affect Vital Signs Temp Pulse Resp BP Pulse Ox 97.7 F L 66 16 139/78 H 96 07/07/18 10:00 07/07/18 10:00 07/07/18 10:00 07/07/18 10:00 07/07/18 10:00 Oxygen Delivery Method Room Air Weight: 85.9 kg Body Mass Index (BMI) 31.1 Intake and Output for Last 24 Hours 07/05/18 07/06/18 07/07/18 23:59 23:59 23:59 Intake Total 1920 / 1920 1280 / 1280 120 / 120 Output Total 1250 / 1250 50 / 50 300 / 300 Balance 670 / 670 1230 / 1230 -180 / -180 Medical Necessity - Tobacco Use Smoking Status: Former smoker Tobacco Use: Non-smoker Assessment/Plan All Active Problems Intraventricular hemorrhage (Acute) 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 Was managed conservatively by Neurosurgery at [facility], monitor for hydrocephalus, denies any SIBLEY, was cleared by Neurosurgery prior to discharge to start ASA and DVT prophylaxis with Lovenox, will continue to hold AC, may need evaluation for watchman device by Cardiology as outpatient Plan -PT for gait instability- continues to have incoordination and balance issues -OT for ADLs -Analgesics as needed -Bowel protocol -Daily weight and I/O -HTN-stable, goal BP < 130/80 mmHg, on Lisinopril, Diltiazem and Metoprolol. -HLD-on Lipitor 10 mg PO q hs -Afib- AC on hold due to left MCP hemorrhage secondary to AC, on hold per neurosurgery, on Diltiazem and Metoprolol for rate control. May benefit from watchman device evaluation by Cardiology. -Left MCP hemorrhage secondary to AC-stable, goal BP < 130/80 mmHg, follow up with Neurosurgery. Patient had appointment with Dr. Gutierrez on 07/01/18 but did not go, discussed with patient and will make another appointment with Neurosurgery -CAD s/p stents- stable, on ASA, cleared by Neurosurgery -Loss of appetite-patient has declined Remeron, further management per belling machine operator recommendations. -GI/DVT prophylaxis- on Enoxaparin -Follow up appointments- 07/15/18 to Echo and holter monitor with RECOVERY RN, discussed in detail with patient about outpatient cardiology evaluation for watchman device since patient is not willing to go back on AC. -Fall precautions -Further medical management per hospitalist recommendation.
--- NOTE | 2018-07-07 12:15 | CASEMGMT ---
Insurance Clinical information faxed. Pending continued stay approval. Auth#[id number] Lorna VENEGAS, FINISHING OPERATOR
[2018-07-07] MEDS: dilTIAZem CD 180 MG Capsule PO (12:18)
[2018-07-07] MEDS: Aspirin E.C. 81 MG Tablet PO (12:19)
[2018-07-07] MEDS: Senna/Docusate Sodium 1 Tablet 2 TABLET PO ×2 (12:19→20:54)
[2018-07-07 12:22] VITALS: BP 139/79; PULSE 66
[2018-07-07] MEDS: Metoprolol(XL)Succ 50 MG Tablet PO ×2 (12:22→20:53)
[2018-07-07 14:55] VITALS: BMI 31.1
[2018-07-07 20:47] VITALS: BP 158/73; PULSE 70; RESP 16; TEMP 36.8; O2SAT 96
[2018-07-07 20:51] VITALS: BMI 31.1
[2018-07-07 20:53] VITALS: PULSE 70
[2018-07-07] MEDS: Atorvastatin Calcium 10 MG Tablet PO (20:54)
[2018-07-08 09:16] VITALS: BP 119/80; PULSE 62; RESP 17; TEMP 36.6; O2SAT 96
[2018-07-08 11:00] VITALS: BP 119/80; PULSE 62
[2018-07-08] MEDS: Lisinopril 40 MG Tablet PO (11:00)
[2018-07-08] MEDS: Metoprolol(XL)Succ 50 MG Tablet PO ×2 (11:00→22:12)
[2018-07-08] MEDS: Senna/Docusate Sodium 1 Tablet 2 TABLET PO ×2 (11:01→22:12)
[2018-07-08] MEDS: Hydrocortisone 2.5% Crm 1 APPLIC TOPICAL ×3 (11:01→22:13)
[2018-07-08] MEDS: Aspirin E.C. 81 MG Tablet PO (11:01)
[2018-07-08] MEDS: dilTIAZem CD 180 MG Capsule PO (11:01)
[2018-07-08] MEDS: Enoxaparin 40 MG/0.4 ML Syringe SC (11:01)
[2018-07-08 11:44] VITALS: BMI 31.1
--- NOTE | 2018-07-08 12:13 | PCM.PN.HOSP ---
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 Patient eager for discharge to home with possibility of 07/15/18 discharge given noted plans for HM and ECHO at that time, but unclear timeline and relayed patient update request to staff. He notes missed his appointment w/ Neurosurgery but states that his was calling to rearrange. Patient denies fevers, chills, nausea, emesis, abdominal pain, chest pain or dyspnea. Objective: Physical Examination: General: awake, alert, oriented x 3 and cooperative, seated upright in bedside chair, in no apparent distress. Skin: normal color, turgor, no icterus, cyanosis. HEENT: AT/NC, EOMI, PERRLA, MMM. Lungs: CTA bilaterally, moderate effort, mild decrease BL bases, no rales, ronchi or wheezing. Heart: Regular rate and rhythm; no gallop, rub audible. Abdomen: soft, overweight, NTTP, ND, normal BS. Extremities: no cyanosis, clubbing, or edema. Neurological: patient awake, alert, oriented x 3; cognitive function intact; pupils equally reactive to light and accomodation; cranial nerves II-XII grossly normal, moving all 4 extremities, strength intact, L sided ataixa remains and incoordination, FTN/HTN, sensation intact. Psychiatric: affect appears normal, no acute evidence of depressive or anxiety feelings. Vitals/I&O's: Vital Signs Temp Pulse Resp BP Pulse Ox 97.8 F 62 17 119/80 96 07/08/18 09:16 07/08/18 11:00 07/08/18 09:16 07/08/18 11:00 07/08/18 09:16 Oxygen Delivery Method Room Air Weight: 189 lb 6 oz Body Mass Index (BMI) 31.1 Intake and Output for Last 24 Hours 07/06/18 07/07/18 07/08/18 23:59 23:59 23:59 Intake Total 1280 / 1280 400 / 400 240 / 240 Output Total 50 / 50 450 / 450 Balance 1230 / 1230 -50 / -50 240 / 240 Current Medications Acetaminophen (Tylenol) 650 mg PO Q8H PRN PRN PRN Reason: Mild Pain (0-3/10)/Headache Aspirin (Ecotrin) 81 mg PO DAILY@0800 [facility] Last Admin: 07/08/18 11:01 Dose: 81 mg Atorvastatin Calcium (Lipitor) 10 mg PO QHS [facility] Last Admin: 07/07/18 20:54 Dose: 10 mg Bisacodyl (Dulcolax) 10 mg RECTAL .PRN X 1 PRN PRN Reason: Constipation Diltiazem HCl (Cardizem Cd) 180 mg PO DAILY [facility] Last Admin: 07/08/18 11:01 Dose: 180 mg Enoxaparin Sodium (Lovenox) 40 mg SC DAILY@0600 [facility] Last Admin: 07/08/18 11:01 Dose: 40 mg Hydrocortisone (Hytone) 1 applic TOPICAL TID [facility] PRN Reason: Protocol Last Admin: 07/08/18 11:01 Dose: 1 applicatio Lisinopril (Zestril) 40 mg PO DAILY@0700 [facility] Last Admin: 07/08/18 11:00 Dose: 40 mg Magnesium Hydroxide (Milk Of Magnesia) 30 ml PO .PRN X 1 PRN PRN Reason: Constipation Metoprolol Succinate (Toprol Xl (Beta Florence)) 50 mg PO BID [facility] Last Admin: 07/08/18 11:00 Dose: 50 mg Nutritional Formula (Lactose Free) (Ensure Enlive) 120 ml PO 4X/DAY [facility] Last Admin: 07/08/18 11:00 Dose: 120 ml Senna/Docusate Sodium (Senokot-S, Selene-Colace) 2 tablet PO BID [facility] Last Admin: 07/08/18 11:01 Dose: 2 tablet Medical Necessity - Tobacco Use Smoking Status: Former smoker Tobacco Use: Non-smoker Assessment/Plan All Active Problems Intraventricular hemorrhage (Acute) 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 (1) Mechanical Fall w/ L intraparenchymal hematoma L middle cerebellar peduncle and intraventricular hemorrhage: Patient with paroxysmal A. fib history with ablation in the past recently started on Eliquis approximately 2 months prior to current presentation in addition to Cardizem and metoprolol with presentation to [facility] with dizziness, nausea, vomiting, ataxic gait with fall with no loss of consciousness and headache following with CT at [facility] demonstrating a 2.4 similar left-sided cerebral hemorrhage extending into the third and fourth ventricle prompting [facility] to [facility] where he was admitted to the NSICU with management of his hemorrhage conservatively with following mild weakness of the left upper extremity prompting transition to rehab for further therapies. Continued PT, OT w/ ongoing balance and coordination issues, maintain on lisinopril, cardizem and metoprolol to achieve goal BP < 140/90, continue statin, hold further anticoagulation per Neurosurgery, missed 07/01/18 follow-up appointment with planned re-scheduling, allowed to be on ASA 81 mg per Neurosurgery. (2) CAD: s/p PCI, maintain on ASA, statin, BB. (3) Hypertension: Continue home regimen including lisinopril, Cardizem, metoprolol, PRN hydralazine. (4) Hyperlipidemia: Continue home statin regimen. (5) PAF: Maintain on ASA 81 mg daily, metoprolol and cardizem. Declined restart anticoagulation once cleared per Neurosurgery. Planned ECHO w/ HM 07/15/18 initiation w/ Cardiology follow-up at discharge with patient noted preference to avoid restart of anticoagulation following these events. (6) Suspected Depression: Noted poor appetite, notable recent events, placed on Remeron per Rehabilitation service. (7) DVT prophylaxis: SCDs, lovenox. Code Visit Inpatient E&M: 64806 Subs Hosp L2
--- NOTE | 2018-07-08 12:44 | PCM.PN.NEU ---
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 Patient care discussed with nursing staff. - Physical Exam General: Alert HEENT: Normocephalic Neck: Supple Lungs: Clear to auscultation Cardiovascular: Normal S1, Normal S2 Abdomen: Bowel Sounds Present Extremities: No cyanosis Skin: No rashes Musculoskeletal: No Tenderness to Palpation of Joints or Extremities Neurological: - - consious, alert, AoAx3, CN2-12 grossly intact, pupils BERL, power 5/5 both UE/LE, left UE/LE ataxia and incordination, right UE/LE no ataxia, no sensory loss, gait deferred, Reflexes + B/L B/S/T/K/A. Psych/Mental Status: Normal Affect Vital Signs Temp Pulse Resp BP Pulse Ox 97.8 F 62 17 119/80 96 07/08/18 09:16 07/08/18 11:00 07/08/18 09:16 07/08/18 11:00 07/08/18 09:16 Oxygen Delivery Method Room Air Weight: 85.899 kg Body Mass Index (BMI) 31.1 Intake and Output for Last 24 Hours 07/06/18 07/07/18 07/08/18 23:59 23:59 23:59 Intake Total 1280 / 1280 400 / 400 240 / 240 Output Total 50 / 50 450 / 450 Balance 1230 / 1230 -50 / -50 240 / 240 Medical Necessity - Tobacco Use Smoking Status: Former smoker Tobacco Use: Non-smoker Assessment/Plan All Active Problems Intraventricular hemorrhage (Acute) 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 Was managed conservatively by Neurosurgery at [facility], monitor for hydrocephalus, denies any SIBLEY, was cleared by Neurosurgery prior to discharge to start ASA and DVT prophylaxis with Lovenox, will continue to hold AC, may need evaluation for watchman device by Cardiology as outpatient Plan -PT for gait instability- continues to have incoordination and balance issues -OT for ADLs -Analgesics as needed -Bowel protocol -Daily weight and I/O -HTN-stable, goal BP < 130/80 mmHg, on Lisinopril, Diltiazem and Metoprolol. -HLD-on Lipitor 10 mg PO q hs -Afib- AC on hold due to left MCP hemorrhage secondary to AC, on hold per neurosurgery, on Diltiazem and Metoprolol for rate control. May benefit from watchman device evaluation by Cardiology. -Left MCP hemorrhage secondary to AC-stable, goal BP < 130/80 mmHg, follow up with Neurosurgery. Patient had appointment with Dr. Gutierrez on 07/01/18 but did not go, discussed with patient and will make another appointment with Neurosurgery -CAD s/p stents- stable, on ASA, cleared by Neurosurgery -Loss of appetite-patient has declined Remeron, further management per automotive assembler recommendations. -GI/DVT prophylaxis- on Enoxaparin -Follow up appointments- 07/15/18 to Echo and holter monitor with TEACHER OF THE VISUALLY IMPAIRED, discussed in detail with patient about outpatient cardiology evaluation for watchman device since patient is not willing to go back on AC. -Fall precautions -Further medical management per hospitalist recommendation.
--- NOTE | 2018-07-08 12:58 | CASEMGMT ---
Insurance Continued stay approved with next update due on 07/14/18. Auth#[id number] Lorna VENEGAS, AUTOMOTIVE PARTS PERSON
[2018-07-08 18:49] VITALS: BP 113/64; PULSE 69; RESP 18; TEMP 36.6; O2SAT 95
[2018-07-08 22:12] VITALS: BP 113/64; PULSE 69
[2018-07-08] MEDS: Atorvastatin Calcium 10 MG Tablet PO (22:13)
[2018-07-09] VITALS (7 sets, daily range): BP systolic 128–148; BP diastolic 68–95; PULSE 63–77; RESP 16–17; TEMP 36.7–36.8; O2SAT 94–99; BMI 31.1
[2018-07-09] MEDS: Hydrocortisone 2.5% Crm 1 APPLIC TOPICAL ×3 (06:51→20:34)
[2018-07-09] MEDS: Lisinopril 40 MG Tablet PO (06:51)
[2018-07-09] MEDS: Enoxaparin 40 MG/0.4 ML Syringe SC (06:51)
[2018-07-09] MEDS: Metoprolol(XL)Succ 50 MG Tablet PO ×2 (08:07→20:33)
[2018-07-09] MEDS: Senna/Docusate Sodium 1 Tablet 2 TABLET PO ×2 (08:07→20:33)
[2018-07-09] MEDS: dilTIAZem CD 180 MG Capsule PO (08:07)
[2018-07-09] MEDS: Aspirin E.C. 81 MG Tablet PO (08:07)
--- NOTE | 2018-07-09 12:02 | PCM.PN.NEU ---
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 Patient care discussed with nursing staff - Physical Exam General: Alert HEENT: Normocephalic Neck: Supple Lungs: Clear to auscultation Cardiovascular: Normal S1, Normal S2 Abdomen: Bowel Sounds Present Extremities: No cyanosis Musculoskeletal: No Tenderness to Palpation of Joints or Extremities Neurological: - - consious, alert, AoAx3, CN2-12 grossly intact, pupils BERL, power 5/5 both UE/LE, left UE/LE ataxia and incordination, right UE/LE no ataxia, no sensory loss, gait deferred, Reflexes + B/L B/S/T/K/A. Psych/Mental Status: Normal Affect Vital Signs Temp Pulse Resp BP Pulse Ox 98.1 F 77 16 143/80 H 99 07/09/18 08:05 07/09/18 08:07 07/09/18 08:05 07/09/18 08:05 07/09/18 08:05 Oxygen Delivery Method Room Air Weight: 86.273 kg Body Mass Index (BMI) 31.1 Intake and Output for Last 24 Hours 07/07/18 07/08/18 07/09/18 23:59 23:59 23:59 Intake Total 400 / 400 360 / 360 240 / 240 Output Total 450 / 450 200 / 200 200 / 200 Balance -50 / -50 160 / 160 40 / 40 Medical Necessity - Tobacco Use Smoking Status: Former smoker Tobacco Use: Non-smoker Assessment/Plan All Active Problems Intraventricular hemorrhage (Acute) 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 Was managed conservatively by Neurosurgery at [facility], monitor for hydrocephalus, denies any SIBLEY, was cleared by Neurosurgery prior to discharge to start ASA and DVT prophylaxis with Lovenox, will continue to hold AC, may need evaluation for watchman device by Cardiology as outpatient Plan -PT for gait instability- continues to have incoordination and balance issues -OT for ADLs -Analgesics as needed -Bowel protocol -Daily weight and I/O -HTN-stable, goal BP < 130/80 mmHg, on Lisinopril, Diltiazem and Metoprolol. -HLD-on Lipitor 10 mg PO q hs -Afib- AC on hold due to left MCP hemorrhage secondary to AC, on hold per neurosurgery, on Diltiazem and Metoprolol for rate control. May benefit from watchman device evaluation by Cardiology. -Left MCP hemorrhage secondary to AC-stable, goal BP < 130/80 mmHg, follow up with Neurosurgery. Patient had appointment with Dr. Gutierrez on 07/01/18 but did not go, discussed with patient and will make another appointment with Neurosurgery -CAD s/p stents- stable, on ASA, cleared by Neurosurgery -Loss of appetite-patient has declined Remeron, further management per practice performance manager recommendations. -GI/DVT prophylaxis- on Enoxaparin -Follow up appointments- 07/15/18 to Echo and holter monitor with JAVA GOLDEN GATE DEVELOPER, discussed in detail with patient about outpatient cardiology evaluation for watchman device since patient is not willing to go back on AC. -Fall precautions -Further medical management per hospitalist recommendation.
[2018-07-09] MEDS: Atorvastatin Calcium 10 MG Tablet PO (20:33)
[2018-07-10] MEDS: Enoxaparin 40 MG/0.4 ML Syringe SC (06:43)
[2018-07-10] MEDS: Lisinopril 40 MG Tablet PO (06:43)
[2018-07-10 07:23] VITALS: BP 150/87; PULSE 77; RESP 18; TEMP 36.7; O2SAT 94
[2018-07-10 07:50] VITALS: PULSE 77
[2018-07-10] MEDS: Senna/Docusate Sodium 1 Tablet 2 TABLET PO ×2 (07:50→21:22)
[2018-07-10] MEDS: dilTIAZem CD 180 MG Capsule PO (07:50)
[2018-07-10] MEDS: Aspirin E.C. 81 MG Tablet PO (07:50)
[2018-07-10] MEDS: Metoprolol(XL)Succ 50 MG Tablet PO ×2 (07:50→21:22)
[2018-07-10 10:39] VITALS: BMI 31.1
[2018-07-10] MEDS: Hydrocortisone 2.5% Crm 1 APPLIC TOPICAL ×2 (13:30→21:23)
[2018-07-10 21:16] VITALS: BP 121/62; PULSE 68; RESP 18; TEMP 37.1; O2SAT 94
[2018-07-10 21:22] VITALS: BP 121/62; PULSE 68
[2018-07-10] MEDS: Atorvastatin Calcium 10 MG Tablet PO (21:22)
[2018-07-11] MEDS: Lisinopril 40 MG Tablet PO (06:23)
[2018-07-11] MEDS: Enoxaparin 40 MG/0.4 ML Syringe SC (06:23)
[2018-07-11 07:55] VITALS: BP 139/78; PULSE 74; RESP 18; TEMP 36.9; O2SAT 92
[2018-07-11 08:18] VITALS: PULSE 74
[2018-07-11] MEDS: Hydrocortisone 2.5% Crm 1 APPLIC TOPICAL ×3 (08:18→20:08)
[2018-07-11] MEDS: Senna/Docusate Sodium 1 Tablet 2 TABLET PO ×2 (08:18→19:51)
[2018-07-11] MEDS: dilTIAZem CD 180 MG Capsule PO (08:18)
[2018-07-11] MEDS: Metoprolol(XL)Succ 50 MG Tablet PO ×2 (08:18→19:51)
[2018-07-11] MEDS: Aspirin E.C. 81 MG Tablet PO (08:18)
[2018-07-11] MEDS: Acetaminophen 325 MG Tablet 650 MG PO ×2 (09:52→18:27)
--- NOTE | 2018-07-11 09:53 | NURSING ---
patient ambulated > 150 ft x supervision with walker.
--- NOTE | 2018-07-11 10:15 | PCM.PN.HOSP ---
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 At this point per discussion with team likely discharge to home this coming Thursday but no specific timeline. Nursing staff notes that insurance coverage does cease on Thursday with need for repeat documentation and evaluation if planned continuation. Patient states therapies have been going well but he does admit notable fatigue he also notes mildly decreased mood secondary to missing his canine but otherwise appears in decent spirits. Patient denies fevers, chills, nausea, emesis, abdominal pain, chest pain or dyspnea. Objective: Physical Examination: General: awake, alert, oriented x 3 and cooperative, seated upright in bedside chair, in no apparent distress. Skin: normal color, turgor, no icterus, cyanosis. HEENT: AT/NC, EOMI, PERRLA, MMM. Lungs: CTA bilaterally, moderate effort, mild decrease BL bases, no rales, ronchi or wheezing. Heart: Regular rate and rhythm; no gallop, rub audible. Abdomen: soft, overweight, NTTP, ND, normal BS. Extremities: no cyanosis, clubbing, or edema. Neurological: patient awake, alert, oriented x 3; cognitive function intact; pupils equally reactive to light and accomodation; cranial nerves II-XII grossly normal, moving all 4 extremities, strength intact, L sided ataixa remains and incoordination, FTN/HTN, sensation intact. Psychiatric: affect appears normal, no acute evidence of depressive or anxiety feelings but does note missing his dog and eager for discharge. Vitals/I&O's: Vital Signs Temp Pulse Resp BP Pulse Ox 98.4 F 74 18 139/78 H 92 07/11/18 07:55 07/11/18 08:18 07/11/18 07:55 07/11/18 07:55 07/11/18 07:55 Oxygen Delivery Method Room Air Weight: 189 lb 13.088 oz Body Mass Index (BMI) 31.1 Intake and Output for Last 24 Hours 07/09/18 07/10/18 07/11/18 23:59 23:59 23:59 Intake Total 520 / 520 440 / 440 80 / 80 Output Total 400 / 400 150 / 150 250 / 250 Balance 120 / 120 290 / 290 -170 / -170 Current Medications Acetaminophen (Tylenol) 650 mg PO Q8H PRN PRN PRN Reason: Mild Pain (0-3/10)/Headache Last Admin: 07/11/18 09:52 Dose: 650 mg Aspirin (Ecotrin) 81 mg PO DAILY@0800 [facility] Last Admin: 07/11/18 08:18 Dose: 81 mg Atorvastatin Calcium (Lipitor) 10 mg PO QHS [facility] Last Admin: 07/10/18 21:22 Dose: 10 mg Bisacodyl (Dulcolax) 10 mg RECTAL .PRN X 1 PRN PRN Reason: Constipation Diltiazem HCl (Cardizem Cd) 180 mg PO DAILY [facility] Last Admin: 07/11/18 08:18 Dose: 180 mg Enoxaparin Sodium (Lovenox) 40 mg SC DAILY@0600 [facility] Last Admin: 07/11/18 06:23 Dose: 40 mg Hydrocortisone (Hytone) 1 applic TOPICAL TID [facility] PRN Reason: Protocol Last Admin: 07/11/18 08:18 Dose: 1 applicatio Lisinopril (Zestril) 40 mg PO DAILY@0700 [facility] Last Admin: 07/11/18 06:23 Dose: 40 mg Magnesium Hydroxide (Milk Of Magnesia) 30 ml PO .PRN X 1 PRN PRN Reason: Constipation Metoprolol Succinate (Toprol Xl (Beta Florence)) 50 mg PO BID [facility] Last Admin: 07/11/18 08:18 Dose: 50 mg Senna/Docusate Sodium (Senokot-S, Selene-Colace) 2 tablet PO BID [facility] Last Admin: 07/11/18 08:18 Dose: 2 tablet Medical Necessity - Tobacco Use Smoking Status: Former smoker Tobacco Use: Non-smoker Assessment/Plan All Active Problems Intraventricular hemorrhage (Acute) 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 (1) Mechanical Fall w/ L intraparenchymal hematoma L middle cerebellar peduncle and intraventricular hemorrhage: Patient with paroxysmal A. fib history with ablation in the past recently started on Eliquis approximately 2 months prior to current presentation in addition to Cardizem and metoprolol with presentation to [place] ED with dizziness, nausea, vomiting, ataxic gait with fall with no loss of consciousness and headache following with CT at [place] demonstrating a 2.4 similar left-sided cerebral hemorrhage extending into the third and fourth ventricle prompting [facility] to [facility] where he was admitted to the NSICU with management of his hemorrhage conservatively with following mild weakness of the left upper extremity prompting transition to rehab for further therapies. Continued PT, OT w/ ongoing balance and coordination issues, maintain on lisinopril, cardizem and metoprolol to achieve goal BP < 140/90, continue statin, hold further anticoagulation per Neurosurgery, missed 07/01/18 follow-up appointment with planned re-scheduling, allowed to be on ASA 81 mg per Neurosurgery. Discussion with staff expect likely discharge to home on 07/15/18. (2) CAD: s/p PCI, maintain on ASA, statin, BB. (3) Hypertension: Continue home regimen including lisinopril, Cardizem, metoprolol, PRN hydralazine. (4) Hyperlipidemia: Continue home statin regimen. (5) PAF: Maintain on ASA 81 mg daily, metoprolol and cardizem. Declined restart anticoagulation once cleared per Neurosurgery. Planned ECHO w/ HM 07/15/18 initiation w/ Cardiology follow-up at discharge with patient noted preference to avoid restart of anticoagulation following these events. (6) Suspected Depression: Noted poor appetite, notable recent events, initially placed on Remeron per Rehabilitation service; however, refused. Mood seems appropriate for current situation, notes missing his dog, but otherwise no acute evidence of depression. (7) DVT prophylaxis: SCDs, lovenox. Code Visit Inpatient E&M: 75977 Subs Hosp L2
--- NOTE | 2018-07-11 13:36 | NURSING ---
patient stated his recliner was uncomfortable, recliners changed. patient stated the new recliner is more comfortable. patient ambulated > 150 ft walker x supervision at this time.
--- NOTE | 2018-07-11 13:51 | NURSING ---
patient was on nu-step for 10 min and 5 seconds. patient ambulated back to room to rest.
[2018-07-11 16:20] VITALS: BMI 31.1
[2018-07-11 19:45] VITALS: BP 119/71; PULSE 66; RESP 17; TEMP 36.9; O2SAT 96
[2018-07-11 19:51] VITALS: BP 119/71; PULSE 66
[2018-07-11] MEDS: Atorvastatin Calcium 10 MG Tablet PO (19:51)
[2018-07-12] MEDS: Lisinopril 40 MG Tablet PO (06:48)
[2018-07-12] MEDS: Enoxaparin 40 MG/0.4 ML Syringe SC (06:48)
[2018-07-12] MEDS: Hydrocortisone 2.5% Crm 1 APPLIC TOPICAL (06:48)
[2018-07-12] MEDS: dilTIAZem CD 180 MG Capsule PO (07:43)
[2018-07-12 07:44] VITALS: PULSE 66
[2018-07-12] MEDS: Aspirin E.C. 81 MG Tablet PO (07:44)
[2018-07-12] MEDS: Metoprolol(XL)Succ 50 MG Tablet PO ×2 (07:44→20:47)
[2018-07-12 08:00] VITALS: BP 136/84; PULSE 66; RESP 18; TEMP 36.6; O2SAT 97
[2018-07-12] MEDS: Acetaminophen 325 MG Tablet 650 MG PO (08:07)
--- NOTE | 2018-07-12 13:10 | CASEMGMT ---
Team meeting held. Patient present as well as patient spouse. Patient requesting for discharge date to be set for 07/14/18. Team is agreeable to discharge date. Patient plans to discharge to home with spouse. Patient reporting to have all needed durable medical equipment already set up within the home. Physical and Occupational therapy are recommending for patient to have continued therapy within the home. Patient is agreeable to recommendation and requesting for a home health company to be set up through [facility]. Patient does not have a preference of home health company. Patient spouse to provide transportation home for patient at time of discharge. Support given. Proposed discharge date: 07/14/18 PLAN: Discharge to home with spouse and home health services. Will continue to follow for support as needed and to set up home health services. Lorna VENEGAS, POULTRY CUTTER
[2018-07-12 14:10] VITALS: BMI 31.1
[2018-07-12 20:09] VITALS: BP 138/78; PULSE 64; RESP 18; TEMP 36.8; O2SAT 96
[2018-07-12 20:45] VITALS: PULSE 61; RESP 18; O2SAT 95; BMI 31.1
[2018-07-12 20:47] VITALS: BP 119/71; PULSE 61
[2018-07-12] MEDS: Senna/Docusate Sodium 1 Tablet 2 TABLET PO (20:47)
[2018-07-12] MEDS: Atorvastatin Calcium 10 MG Tablet PO (20:48)
[2018-07-13] MEDS: Enoxaparin 40 MG/0.4 ML Syringe SC (05:54)
[2018-07-13 08:58] VITALS: PULSE 77
[2018-07-13] MEDS: Metoprolol(XL)Succ 50 MG Tablet PO ×2 (08:58→20:06)
[2018-07-13] MEDS: dilTIAZem CD 180 MG Capsule PO (08:58)
[2018-07-13] MEDS: Aspirin E.C. 81 MG Tablet PO (08:58)
[2018-07-13] MEDS: Senna/Docusate Sodium 1 Tablet 2 TABLET PO (08:58)
[2018-07-13] MEDS: Lisinopril 40 MG Tablet PO (08:59)
[2018-07-13] MEDS: Acetaminophen 325 MG Tablet 650 MG PO (09:04)
[2018-07-13 09:37] VITALS: BP 101/66; PULSE 68; RESP 16; TEMP 36.8; O2SAT 95
--- NOTE | 2018-07-13 11:30 | CASEMGMT ---
Social Work Spoke with patient room to collaborate further on a discharge plan. Patient agreeable to this manager social making referral to [facility], as patient does not have a preference. Patient plans to have home health services for physical and occupational therapy. Patient reporting no further discharge needs at this time. Patient spouse to provide transportation home for patient at time of discharge. Support given. Telephone call to [facility], [facility]. Referral made for physical and occupational therapy. Stephanie to get back to this manager social to confirm whether or not they are able to accept. Clinical information faxed. Proposed discharge date: 07/14/18 PLAN: Discharge to home with spouse and home health services. Lorna VENEGAS, DRY HOUSE WORKER
[2018-07-13 14:25] VITALS: BMI 31.1
--- NOTE | 2018-07-13 16:28 | PCM.PN.HOSP ---
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 He notes eagerly plan for discharge to home in a.m. with plan for continued home occupational and physical therapies. He understands he will still need to follow-up with cardiology for echocardiogram and planned Holter monitoring which had been initially planned outpatient for 07/15/18. Patient denies fevers, chills, nausea, emesis, abdominal pain, chest pain or dyspnea. Objective: Physical Examination: General: awake, alert, oriented x 3 and cooperative, seated upright in bed, in no apparent distress. Skin: normal color, turgor, no icterus, cyanosis. HEENT: AT/NC, EOMI, PERRLA, MMM. Lungs: CTA bilaterally, moderate effort, mild decrease BL bases, no rales, ronchi or wheezing. Heart: Regular rate and rhythm; no gallop, rub audible. Abdomen: soft, overweight, NTTP, ND, normal BS. Extremities: no cyanosis, clubbing, or edema. Neurological: patient awake, alert, oriented x 3; cognitive function intact; pupils equally reactive to light and accomodation; cranial nerves II-XII grossly normal, moving all 4 extremities, strength intact, L sided ataixa remains and incoordination, FTN/HTN, sensation intact. Psychiatric: affect appears normal, no acute evidence of depressive or anxiety feelings. Vitals/I&O's: Vital Signs Temp Pulse Resp BP Pulse Ox 98.2 F 68 16 101/66 95 07/13/18 09:37 07/13/18 09:37 07/13/18 09:37 07/13/18 09:37 07/13/18 09:37 Oxygen Delivery Method Room Air Weight: 189 lb 13.088 oz Body Mass Index (BMI) 31.1 Intake and Output for Last 24 Hours 07/11/18 07/12/18 07/13/18 23:59 23:59 23:59 Intake Total 320 / 320 520 / 520 200 / 200 Output Total 250 / 250 150 / 150 Balance 70 / 70 520 / 520 50 / 50 Current Medications Acetaminophen (Tylenol) 650 mg PO Q8H PRN PRN PRN Reason: Mild Pain (0-3/10)/Headache Last Admin: 07/13/18 09:04 Dose: 650 mg Aspirin (Ecotrin) 81 mg PO DAILY@0800 [facility] Last Admin: 07/13/18 08:58 Dose: 81 mg Atorvastatin Calcium (Lipitor) 10 mg PO QHS [facility] Last Admin: 07/12/18 20:48 Dose: 10 mg Bisacodyl (Dulcolax) 10 mg RECTAL .PRN X 1 PRN PRN Reason: Constipation Diltiazem HCl (Cardizem Cd) 180 mg PO DAILY [facility] Last Admin: 07/13/18 08:58 Dose: 180 mg Enoxaparin Sodium (Lovenox) 40 mg SC DAILY@0600 [facility] Last Admin: 07/13/18 05:54 Dose: 40 mg Hydrocortisone (Hytone) 1 applic TOPICAL TID [facility] PRN Reason: Protocol Last Admin: 07/13/18 15:06 Dose: Not Given Lisinopril (Zestril) 40 mg PO DAILY@0700 [facility] Last Admin: 07/13/18 08:59 Dose: 40 mg Magnesium Hydroxide (Milk Of Magnesia) 30 ml PO .PRN X 1 PRN PRN Reason: Constipation Metoprolol Succinate (Toprol Xl (Beta Florence)) 50 mg PO BID [facility] Last Admin: 07/13/18 08:58 Dose: 50 mg Senna/Docusate Sodium (Senokot-S, Selene-Colace) 2 tablet PO BID [facility] Last Admin: 07/13/18 08:58 Dose: 2 tablet Medical Necessity - Tobacco Use Smoking Status: Former smoker Tobacco Use: Non-smoker Assessment/Plan All Active Problems Intraventricular hemorrhage (Acute) 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 (1) Mechanical Fall w/ L intraparenchymal hematoma L middle cerebellar peduncle and intraventricular hemorrhage: Patient with paroxysmal A. fib history with ablation in the past recently started on Eliquis approximately 2 months prior to current presentation in addition to Cardizem and metoprolol with presentation to [place] ED with dizziness, nausea, vomiting, ataxic gait with fall with no loss of consciousness and headache following with CT at [place] demonstrating a 2.4 similar left-sided cerebral hemorrhage extending into the third and fourth ventricle prompting [facility] to [facility] where he was admitted to the NSICU with management of his hemorrhage conservatively with following mild weakness of the left upper extremity prompting transition to rehab for further therapies. Continued PT, OT w/ ongoing balance and coordination issues, maintain on lisinopril, cardizem and metoprolol to achieve goal BP < 140/90, continue statin, hold further anticoagulation per Neurosurgery, missed 07/01/18 follow-up appointment with planned re-scheduling, allowed to be on ASA 81 mg per Neurosurgery. Team meeting for further discharge planning with referral made to home health care with planned continued occupational and physical therapy upon discharge with plan discharge in a.m. 07/14/18. (2) CAD: s/p PCI, maintain on ASA, statin, BB. (3) Hypertension: Continue home regimen including lisinopril, Cardizem, metoprolol, PRN hydralazine. (4) Hyperlipidemia: Continue home statin regimen. (5) PAF: Maintain on ASA 81 mg daily, metoprolol and cardizem. Declined restart anticoagulation once cleared per Neurosurgery. Planned ECHO w/ HM 07/15/18 initiation w/ Cardiology follow-up at discharge with patient noted preference to avoid restart of anticoagulation following these events which may be performed outpatient given planned discharge as noted 07/14/18. (6) Suspected Depression: Noted poor appetite, notable recent events, initially placed on Remeron per Rehabilitation service; however, refused. Mood low, notes missing dog, but given impending discharge expect continued improvement but would benefit from close follow-up with PCP and Neurology. (7) DVT prophylaxis: SCDs, lovenox. Code Visit Inpatient E&M: 18327 Subs Hosp L2
[2018-07-13 19:33] VITALS: BP 117/68; PULSE 66; RESP 17; TEMP 36.8; O2SAT 96
[2018-07-13] MEDS: Hydrocortisone 2.5% Crm 1 APPLIC TOPICAL (19:58)
[2018-07-13] MEDS: Atorvastatin Calcium 10 MG Tablet PO (19:58)
[2018-07-13 20:06] VITALS: PULSE 66
[2018-07-13 20:21] VITALS: BMI 31.1
[2018-07-14] MEDS: Enoxaparin 40 MG/0.4 ML Syringe SC (06:28)
[2018-07-14] MEDS: Hydrocortisone 2.5% Crm 1 APPLIC TOPICAL (06:29)
[2018-07-14] MEDS: Lisinopril 40 MG Tablet PO (06:29)
[2018-07-14 07:35] VITALS: BP 114/68; PULSE 68; RESP 16; TEMP 36.6; O2SAT 94
[2018-07-14 08:56] VITALS: PULSE 68
[2018-07-14] MEDS: Aspirin E.C. 81 MG Tablet PO (08:56)
[2018-07-14] MEDS: Metoprolol(XL)Succ 50 MG Tablet PO (08:56)
[2018-07-14] MEDS: dilTIAZem CD 180 MG Capsule PO (08:56)
--- NOTE | 2018-07-14 09:51 | PCM.DC ---
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 (Acute) Status post percutaneous transluminal coronary angioplasty (Chronic) Coronary artery disease (Chronic) Paroxysmal atrial fibrillation (Chronic) Reason(s) for Visit for Discharge Instructions: debility, cva You will use the following diet at home:: No restrictions Your food should be the consistency of: Regular Your liquids should be the consistency of: Regular/Thin Discharge Activity: Return to Normal Activity, May Not Drive, Use Walker Weight Bearing Status: Weight bearing as tolerated Lifting Restrictions: 10 lbs Allergies/Adverse Reactions: Allergies ibuprofen Allergy (Verified 06/23/18 22:27) Anaphylaxis Medications to take at Discharge Acetaminophen [Tylenol Tablet] 650 mg PO Q8H PRN PRN tablet 07/14/18 Aspirin E.C. [Ecotrin] 81 mg PO DAILY@0800 tablet 07/14/18 Atorvastatin Calcium [Lipitor] 10 mg PO QHS #30 tab 07/14/18 Bisacodyl [Dulcolax] 10 mg RECTAL .PRN X 1 PRN suppos. 07/14/18 Diltiazem CD [Cardizem CD] 180 mg PO DAILY capsule 07/14/18 Hydrocortisone 2.5% Crm [Hytone] 1 applic TOPICAL TID #1 tube 07/14/18 Lisinopril [Zestril] 40 mg PO DAILY@0700 #30 tab 07/14/18 Magnesium Hydroxide [Milk Of Magnesia] 30 ml PO .PRN X 1 PRN udc 07/14/18 Metoprolol(XL)Succ [Toprol Xl (Beta Florence)] 50 mg PO BID #60 tab 07/14/18 Senna/Docusate Sodium [Senokot-S] 2 tablet PO BID tablet 07/14/18 The following prescriptions were given: Atorvastatin Calcium [Lipitor] 10 mg PO QHS #30 tab Lisinopril [Zestril] 40 mg PO DAILY@0700 #30 tab Metoprolol(XL)Succ [Toprol Xl (Beta Florence)] 50 mg PO BID #60 tab Hydrocortisone 2.5% Crm [Hytone] 1 applic TOPICAL TID #1 tube Primary Care Physician: Brenda Hankins,Out of [Primary Care Provider] - Test Results: Test results from this visit will be discussed in further detail at your follow-up appointment, if applicable. Please Follow Up With: Jolanta Please Follow Up With: [facility] Please Follow Up With: Brenda Please Follow Up With: [facility] Proposed Discharge Date: 07/14/18
--- NOTE | 2018-07-14 09:53 | PCM.RU.DC ---
Rehab Discharge Summary DATE OF ADMISSION: 06/23/18 DATE OF DISCHARGE: 07/14/18 - Rehab Diagnosis debility,intracranial hemmorrhage Discharge Diet: No Restrictions Discharge Activity: Return to Normal Activity, May Not Drive, Use Walker Weight Bearing Status: Weight bearing as tolerated Home Medications: Medications to take at Discharge Acetaminophen [Tylenol Tablet] 650 mg PO Q8H PRN PRN tablet 07/14/18 Aspirin E.C. [Ecotrin] 81 mg PO DAILY@0800 tablet 07/14/18 Atorvastatin Calcium [Lipitor] 10 mg PO QHS #30 tab 07/14/18 Bisacodyl [Dulcolax] 10 mg RECTAL .PRN X 1 PRN suppos. 07/14/18 Diltiazem CD [Cardizem CD] 180 mg PO DAILY capsule 07/14/18 Hydrocortisone 2.5% Crm [Hytone] 1 applic TOPICAL TID #1 tube 07/14/18 Lisinopril [Zestril] 40 mg PO DAILY@0700 #30 tab 07/14/18 Magnesium Hydroxide [Milk Of Magnesia] 30 ml PO .PRN X 1 PRN udc 07/14/18 Metoprolol(XL)Succ [Toprol Xl (Beta Florence)] 50 mg PO BID #60 tab 07/14/18 Senna/Docusate Sodium [Senokot-S] 2 tablet PO BID tablet 07/14/18 Following Prescrptions Were Given to Patient: Atorvastatin Calcium [Lipitor] 10 mg PO QHS #30 tab Lisinopril [Zestril] 40 mg PO DAILY@0700 #30 tab Metoprolol(XL)Succ [Toprol Xl (Beta Florence)] 50 mg PO BID #60 tab Hydrocortisone 2.5% Crm [Hytone] 1 applic TOPICAL TID #1 tube Primary Care Physician: Brenda Hankins,Out of [Primary Care Provider] - Please Follow Up With: Jolanta Please Follow Up With: [facility] Please Follow Up With: Brenda Please Follow Up With: [facility] - [facility] Disposition: Home Minutes spent on discharge:: 45 Patient Condition:: Good Rehab Course Per admission H&P: The patient is a 72 year old right handed male. who was admitted to the rehab unit for rehabilitation after he suffered a left intraparenchymal hematoma of the left middle cerebellar peduncle as well as intraventricular hemorrhage secondary to Eliquis that he has been on for paroxysmal atrial fibrillation. He has a pass medical history significant for paroxysmal A-Fib, he had an ablation in the past, and was recently started on Eliquis 2 months ago, he is on Cardizem and Metoprolol for rate control, CAD s/p PTCI, HTN, HLD, and obesity, his BMI is 31.2. He was admitted to [facility] ([facility]) from [place] ED a few days ago with sudden onset dizziness with N/V, ataxic gait resulting in a fall with no loss of consciousness, and a headache. CTH at [place] ED showed a 2.4 cm left-sided cerebellar hemorrhage extending into the third and fourth ventricle. He was then life flighted to [facility], and admitted to the NSICU, his NIH on admission was 0. Once at [facility] his hemorrhage was managed conservatively without any interventions. He continues to have some mild weakness of the left upper extremity. He lives with his in [address] [place] [address] [place] with no steps to get into the home. He was previously completely functionally independent and is admitted to the rehab unit in order to restore his previous level of functional independence. He was on Eliquis previously at home. His rehab stay was uneventful. He tolerated therapies well and improved to the extent that he could be discharged home independently with outpatient therapies. He was discharged home in good condition with medications as stated. Meaningful Use Info Meaningful Use Diagnoses (Choose all that apply): None applicable
[2018-07-14 12:00] VITALS: BP 114/68; PULSE 68; RESP 16; TEMP 36.6; O2SAT 94
--- NOTE | 2018-07-14 12:46 | NURSING ---
Addendum entered by Echo Escobedo 07/14/18 13:36: patients reported she will make all follow up appts including pcp and [place] [facility] appt with dr kay. Original Note: Discharge instructions given to and patient and verbalized understanding.
[2018-07-14 12:52] VITALS: BMI 31.1
--- NOTE | 2018-07-14 13:43 | CASEMGMT ---
Insurance VM left with Olivia at insurance informing of d/c home on this date. Auth # [id number] THEO Bermudez
== END 2018-07-14 12:05 | disposition home health service (06) | DRG 57 ==
PROVIDERS: Admitting Provider Psychiatry & Neurology Neurology; Visit Provider Hospitalist
DX: I69.154 Hemiplegia and hemiparesis following nontraumatic intracerebral hemorrhage affecting left non-dominant side (principal); D68.9 Coagulation defect, unspecified; E78.5 Hyperlipidemia, unspecified; I25.10 Atherosclerotic heart disease of native coronary artery without angina pectoris; I48.0 Paroxysmal atrial fibrillation; I10 Essential (primary) hypertension; Z95.5 Presence of coronary angioplasty implant and graft; T45.515D Adverse effect of anticoagulants, subsequent encounter; E66.9 Obesity, unspecified; Z68.31 Body mass index [BMI] 31.0-31.9, adult; Z71.3 Dietary counseling and surveillance; Z87.891 Personal history of nicotine dependence; E11.9 Type 2 diabetes mellitus without complications; Z91.81 History of falling; K59.00 Constipation, unspecified
CPT/HCPCS: 36415; 80048; 85027; 85610; 92507; 92523; 97110; 97116; 97162; 97166; 97530; 97535; 97802

== ENCOUNTER → 2018-09-16 20:07 | Outpatient (CLI) | payer OTHER, SELFPAY | PROVIDERS: Visit Provider Nurse Practitioner Acute Care | DX: G47.33 Obstructive sleep apnea (adult) (pediatric) (principal); R06.83 Snoring | CPT/HCPCS: 95810 ==

== ENCOUNTER → 2018-10-20 22:21 | Outpatient (CLI) | payer OTHER, SELFPAY | PROVIDERS: Visit Provider Nurse Practitioner Acute Care | DX: G47.33 Obstructive sleep apnea (adult) (pediatric) (principal) | CPT/HCPCS: 95811 ==